=== PATIENT | male | born 1960 | race African-American/Black ===

== ENCOUNTER 2017-04-05 17:53 | Inpatient (IN) | payer OTHER ==
[2017-04-05 19:12] VITALS: BMI 34.9
--- NOTE | 2017-04-05 21:18 | HP ---
CIWA Score - CIWA Score Nausea/Vomitin-Mild Nausea/No Vomiting Muscle Tremors: 4-Moderate,w/Arms Extend Anxiety: 4-Mod. Anxious/Guarded Agitation: 4-Moderately Restless Paroxysmal Sweats: 1-Minimal Palms Moist Orientation: 1-Uncertain about Date Tacttile Disturbances: 0-None Auditory Disturbances: 0-None Visual Disturbances: 0-None Headache: 0-None Present CIWA-Ar Total Score: 15 Admission ROS BHS - HPI Chief Complaint: withdrawal sx Allergies/Adverse Reactions: Allergies Allergy/AdvReac Type Severity Reaction Status Date / Time Penicillins Allergy Severe Hives Verified 04/05/17 20:24 History of Present Illness: 56 years old male with long history of alcohol nicotine dependence, has asthma hypertension irregular heart rate and hyperlipidemia and depression is admitted to detox Exam Limitations: No Limitations - Ebola screening Have you traveled outside of the country in the last 21 days: No Have you had contact with anyone from an Ebola affected area: No Have you been sick,other than usual withdrawal symptoms: No Do you have a fever: No - Review of Systems Constitutional: Chills, Changes in sleep, Weight Stable EENT: reports: No Symptoms Reported Respiratory: reports: SOB with Exertion Cardiac: reports: Irregular Heart Rate GI: reports: Nausea, Poor Fluid Intake, Abdominal cramping : reports: No Symptoms Reported Musculoskeletal: reports: No Symptoms Reported Integumentary: reports: No Symptoms Reported Neuro: reports: Tremors Endocrine: reports: No Symptoms Reported Hematology: reports: No Symptoms Reported Psychiatric: reports: Judgement Intact, Depressed Other Systems: Reviewed and Negative Patient History - Patient Medical History Hx Anemia: No Hx Asthma: Yes Hx Chronic Obstructive Pulmonary Disease (COPD): No Hx Cancer: No Hx Cardiac Disorders: No Hx Congestive Heart Failure: No Hx Hypertension: Yes Hx Hypercholesterolemia: Yes Hx Pacemaker: No HX Cerebrovascular Accident: No Hx Seizures: No Hx Dementia: No Hx Diabetes: No Hx Gastrointestinal Disorders: No Hx Liver Disease: No Hx Genitourinary Disorders: No Hx Sexually Transmitted Disorders: No Hx Renal Disease (ESRD): No Hx Thyroid Disease: No Hx Human Immunodeficiency Virus (HIV): No Hx Hepatitis C: No Hx Depression: Yes Hx Suicide Attempt: No Hx Bipolar Disorder: No Hx Schizophrenia: No - Patient Surgical History Past Surgical History: Yes Hx Neurologic Surgery: No Hx Cataract Extraction: No Hx Cardiac Surgery: No Hx Lung Surgery: No Hx Breast Surgery: No Hx Breast Biopsy: No Hx Abdominal Surgery: No Hx Appendectomy: No Hx Cholecystectomy: No Hx Genitourinary Surgery: No Hx Orthopedic Surgery: Yes (DISLOCATED LEFT SHOULDER 20 YRS AGO) Anesthesia Reaction: No - PPD History Previous Implant?: Yes Documented Results: Negative w/o proof Implanted On Prior R Admission?: No PPD to be Administered?: Yes - Smoking Cessation Smoking history: Current every day smoker Have you smoked in the past 12 months: Yes Aproximately how many cigarettes per day: 4 Cigars Per Day: 0 Hx Chewing Tobacco Use: No Initiated information on smoking cessation: Yes 'Breaking Loose' booklet given: 04/05/17 - Substance & Tx. History Substance Use Type: Alcohol, Cocaine, Heroin Hx Substance Use Treatment: Yes (11/2016 [facility]) - Substances Abused Alcohol Route: Oral Frequency: Daily Amount used: VODKA 3 PINTS Age of first use: 19 Date of Last Use: 04/05/17 Alprazolam (Xanax) Route: Oral Frequency: 1-2 times per week Amount used: 2 MG Age of first use: 47 Date of Last Use: 04/05/17 Family Disease History - Family Disease History Family History: Unremarkable Other Family History: only child Admission Physical Exam S - Vital Signs Vital Signs: Vital Signs - 24 hr 04/05/17 19:10 Temperature 98.1 F Pulse Rate 80 Respiratory 18 Rate Blood Pressure 160/84 - Physical General Appearance: Yes: Appropriately Dressed, Mild Distress, Obese, Tremorous , Irritable, Sweating, Anxious HEENTM: Yes: Hearing grossly Normal, Normal ENT Inspection, Normocephalic, Normal Voice Respiratory: Yes: Chest Non-Tender, Lungs Clear, Normal Breath Sounds, No Respiratory Distress, No Accessory Muscle Use Neck: Yes: Supple, Trachea in good position Breast: Yes: Breasts Symetrical Cardiology: Yes: S1, S2, Irregular Abdominal: Yes: Non Tender, Soft Genitourinary: Yes: Within Normal Limits Back: Yes: Normal Inspection Musculoskeletal: Yes: full range of Motion, Gait Steady Extremities: Yes: Normal Range of Motion, Non-Tender, Tremors Neurological: Yes: Alert, Motor Strength 5/5, Normal Response, Depressed Affect Integumentary: Yes: Warm Lymphatic: Yes: Within Normal Limits - Diagnostic (1) Alcohol dependence with uncomplicated withdrawal Current Visit: Yes Status: Acute (2) Methadone maintenance therapy patient Current Visit: Yes Status: Chronic Comment: 140 mg verification pending (3) Asthma Current Visit: Yes Status: Chronic Qualifiers: Asthma severity: mild intermittent Asthma complication type: with status asthmaticus Qualified Code(s): J45.22 - Mild intermittent asthma with status asthmaticus (4) Hypertension Current Visit: Yes Status: Chronic Qualifiers: Hypertension type: essential hypertension Qualified Code(s): I10 - Essential (primary) hypertension (5) Hyperlipidemia Current Visit: Yes Status: Chronic Qualifiers: Hyperlipidemia type: pure hypercholesterolemia Qualified Code(s): E78.00 - Pure hypercholesterolemia, unspecified; E78.0 - Pure hypercholesterolemia (6) Irregular heart rate Current Visit: Yes Status: Chronic (7) Nicotine dependence Current Visit: Yes Status: Acute Qualifiers: Nicotine product type: cigarettes Substance use status: in withdrawal Qualified Code(s): F17.213 - Nicotine dependence, cigarettes, with withdrawal (8) Depression (emotion) Current Visit: Yes Status: Suspected Qualifiers: Depression Type: dysthymia Qualified Code(s): F34.1 - Dysthymic disorder Cleared for Admission BHS - Detox or Rehab [facility] Level of Care: Medically Managed Detox Regimen/Protocol: Librium [facility] Breath Alcohol Content Breath Alcohol Content: 0 Urine Drug Screen - Results Drug Screen Negative: No Urine Drug Screen Results: LEE ANN-Cocaine, OPI-Opiates, MTD-Methadone
[2017-04-05] MEDS ORDERED: guaiFENesin/D-METHORPHAN HB 10 ML UNIT-DOSE CUPS PO PRN (21:19)
[2017-04-05] MEDS ORDERED: P-EPHED 60MG/TRIPROLIDI 2.5MG TABLET PO PRN (21:19)
[2017-04-05] MEDS ORDERED: MAGNESIUM HYDROX 2400MG/30ML ORAL SUSPENSION 30 ML CUP PO PRN (21:19)
[2017-04-05] MEDS ORDERED: ACETAMINOPHEN 325 MG TABLET (FP) PO PRN (21:19)
[2017-04-05] MEDS ORDERED: LOPERAMIDE HCL 2 MG CAPSULE PO PRN (21:19)
[2017-04-05] MEDS ORDERED: MENTHOL/PHENOL 1 EACH UD MM PRN (21:19)
[2017-04-05] MEDS ORDERED: NICOTINE POLACRILEX 2 MG GUM BC PRN (21:19)
[2017-04-05] MEDS ORDERED: diphenhydrAMINE HCL 50 MG CAPSULE PO PRN (21:19)
[2017-04-05] MEDS ORDERED: MAGNESIUM CITRATE 300 ML BOTTLE PO PRN (21:19)
[2017-04-05] MEDS ORDERED: chlordiazePOXIDE HCL 25 MG CAPSULE PO PRN (21:19)
[2017-04-05] MEDS ORDERED: MAG HYDROX/AL HYDROX/SIMETH 30 ML UNIT-DOSE CUP PO PRN (21:19)
[2017-04-05] MEDS ORDERED: ALBUTEROL SO4 6.7 GM HFA INHALER IH PRN (21:20)
[2017-04-05] MEDS: HYDROCHLOROTHIAZIDE 25 MG TABLET (FP) PO SCH (23:06)
[2017-04-05] MEDS: ATORVASTATIN CA 10 MG TABLET (FP) PO SCH (23:06)
[2017-04-05] MEDS: chlordiazePOXIDE HCL 25 MG CAPSULE PO SCH (23:06)
[2017-04-05] MEDS: THIAMINE HCL 100 MG TABLET (FP) PO SCH (23:10)
[2017-04-06] MEDS: chlordiazePOXIDE HCL 25 MG CAPSULE PO SCH ×4 (05:48→22:03)
--- NOTE | 2017-04-06 09:11 | PN ---
S CIWA - CIWA Score Nausea/Vomitin Muscle Tremors: 4-Moderate,w/Arms Extend Anxiety: 4-Mod. Anxious/Guarded Agitation: 4-Moderately Restless Paroxysmal Sweats: 3 Orientation: 0-Oriented Tacttile Disturbances: 0-None Auditory Disturbances: 0-None Visual Disturbances: 0-None Headache: 0-None Present CIWA-Ar Total Score: 18 BHS Progress Note (SOAP) Subjective: nausea, sweats, interrupted sleep , anxiety, tremors Objective: 04/06/17 09:10 labs pending Vital Signs - 8 hr 04/06/17 04/06/17 03:30 06:39 Temperature 98.5 F Pulse Rate 88 Respiratory 18 18 Rate Blood Pressure 156/92 Assessment: 04/06/17 09:10 withdrawal sx, methadone dose verified 140mg daily , LD04/05/17 Plan: cont detox, encourage fuids, ambulation, methadone dose oredered for now.
[2017-04-06] MEDS ORDERED: METHADONE HCL 10 MG TABLET PO SCH (09:15)
[2017-04-06] MEDS ORDERED: METHADONE HCL 10 MG TABLET ONE (09:33)
[2017-04-06] MEDS ORDERED: METHADONE HCL 40 MG DISPERSABLE TABLET ONE (09:34)
--- NOTE | 2017-04-06 09:39 | CONSULT ---
[facility] Psychiatric Consult - Data Date of interview: 04/06/17 Admission source: [facility] Identifying data: This is 56 years old male with psychiatric hospitalization history intoxicated with: Alcohol and Nicotine, Opioids Substance Abuse History: - Smoking Cessation. Smoking history: Current every day smoker. Have you smoked in the past 12 months: Yes. Aproximately how many cigarettes per day: 4. Cigars Per Day: 0. Hx Chewing Tobacco Use: No. Initiated information on smoking cessation: Yes. 'Breaking Loose' booklet given : 04/05/17. - Substance & Tx. History. Substance Use Type: Alcohol, Cocaine, Heroin. Hx Substance Use Treatment: Yes (11/2016 [facility] - Substances Abused. Alcohol. Route: Oral. Frequency: Daily. Amount used: VODKA 3 PINTS. Age of first use: 19. Date of Last Use: 04/05/17. Alprazolam (Xanax ). Route: Oral. Frequency: 1-2 times per week. Amount used: 2 MG. Age of first use: 47. Date of Last Use: 04/05/17 Medical History: Asthma, Hyper loproteinemia, HTN, MMTP 140mg pewr day Psychiatric History: Patient rep[rots history of depression, reports unclear recent psychiatric admission on 3 months ago at [facility] with depressed mood, denies suicidal history. Reports taking prior to admission: Risperdal 1mg po qhs Physical/Sexual Abuse/Trauma History: Denies Additional Comment: Risperdal 1mg po qhs Mental Status Exam - Mental Status Exam Alert and Oriented to: Person Cognitive Function: Fair Patient Appearance: Unkempt Mood: Sad Affect: Flat Patient Behavior: Sedated Speech Pattern: Appropriate Voice Loudness: Mildly Soft/Quiet Thought Process: Circumstantial Thought Disorder: Being Controlled Hallucinations: Denies Suicidal Ideation: Denies Homicidal Ideation: Denies Insight/Judgement: Fair Sleep: Difficulty falling asleep Appetite: Weight loss Muscle strength/Tone: Normal Gait/Station: Normal Additional Comments: Risperdal 1mg po qhs Psychiatric Findings - Problem List ([place] 1, 2,3) (1) Alcohol dependence with uncomplicated withdrawal Current Visit: Yes Status: Acute (2) Nicotine dependence Current Visit: Yes Status: Acute Qualifiers: Nicotine product type: cigarettes Substance use status: in withdrawal Qualified Code(s): F17.213 - Nicotine dependence, cigarettes, with withdrawal (3) Methadone maintenance therapy patient Current Visit: Yes Status: Chronic Comment: 140 mg verification pending (4) Drug-induced mood disorder Current Visit: Yes Status: Acute - Initial Treatment Plan Initial Treatment Plan: Risperdal 1mg po qhs
[2017-04-06] MEDS: PRENATAL VITAMINS W/ FOLIC ACID TABLET (FP) PO SCH (10:04)
[2017-04-06] MEDS: ASPIRIN 81 MG CHEWABLE TABLETS PO SCH (10:05)
[2017-04-06] MEDS: METHADONE 120 MG, METHADONE 20 MG PO SCH (10:05)
[2017-04-06 10:06] LABS: MCH 32.1 pg (25.7-33.7); MCHC 34.2 g/dl (32.0-35.9); MEAN CELL VOLUME 93.8 fl (80-96); MEAN PLT VOLUME 7.7 fl (7.5-11.1); PLATELET COUNT 213 K/MM3 (134-434); RDW 13.3 % (11.9-15.9); WHITE BLOOD COUNT 6.6 K/mm3 (4.0-10.0)
[2017-04-06] MEDS: HYDROCHLOROTHIAZIDE 25 MG TABLET (FP) PO SCH (10:06)
[2017-04-06] MEDS: NICOTINE 14 MG/24 HOURS TOPICAL PATCH TD SCH (10:08)
[2017-04-06 10:34] LABS: ALBUMIN 3.5 g/dl (3.4-5.0); ALK PHOS 38 U/L (45-117); ANION GAP 7 (8-16); BILIRUBIN,TOTAL 0.3 mg/dL (0.2-1.0); CALCIUM 9.4 mg/dL (8.5-10.1); CO2 31 mmol/L (21-32); GLUCOSE,RANDOM 93 mg/dL (74-106); SGOT/AST 12 U/L (15-37); SGPT/ALT 20 U/L (12-78); TOT PROT 6.8 g/dl (6.4-8.2)
--- NOTE | 2017-04-06 15:01 | EKG ---
Test Reason : Blood Pressure : / mmHG Vent. Rate : 071 BPM Atrial Rate : 071 BPM P-R Int : 208 ms QRS Dur : 082 ms QT Int : 424 ms P-R-T Axes : 061 062 060 degrees QTc Int : 460 ms NORMAL SINUS RHYTHM NORMAL ECG NO PREVIOUS ECGS AVAILABLE Confirmed by NERIS CORTEZ, MARIANN ([id number]) on 04/06/2017 3:01:10 PM Referred By: Gonzalo Salazar Confirmed By:MARIANN CORDON MD
[2017-04-06 17:22] LABS: PH,URINE 5.5 (5.0-8.0); URINE APPEARANCE CLEAR; URINE BILIRUBIN NEGATIVE (NEGATIVE); URINE BLOOD NEGATIVE (NEGATIVE); URINE COLOR YELLOW; URINE GLUCOSE (UA) NEGATIVE (NEGATIVE); URINE KETONE NEGATIVE (NEGATIVE); URINE LEUK ESTERASE NEGATIVE (NEGATIVE); URINE NITRITE NEGATIVE (NEGATIVE); URINE PROTEIN NEGATIVE (NEGATIVE); URINE UROBILINOGEN 0.2 mg/dL (0.2-1.0)
[2017-04-06] MEDS: ATORVASTATIN CA 10 MG TABLET (FP) PO SCH (22:03)
[2017-04-06] MEDS: risperiDONE 1 MG TABLET (FP) PO SCH (22:03)
[2017-04-06] MEDS: THIAMINE HCL 100 MG TABLET (FP) PO SCH (22:03)
[2017-04-07] MEDS ORDERED: METHADONE HCL 40 MG DISPERSABLE TABLET ONE (04:04)
[2017-04-07] MEDS ORDERED: METHADONE HCL 10 MG TABLET ONE (04:04)
[2017-04-07] MEDS: METHADONE 120 MG, METHADONE 20 MG PO SCH (05:42)
[2017-04-07] MEDS: chlordiazePOXIDE HCL 25 MG CAPSULE PO SCH ×3 (05:43→18:52)
[2017-04-07] MEDS: HYDROCHLOROTHIAZIDE 25 MG TABLET (FP) PO SCH (10:04)
[2017-04-07] MEDS: ASPIRIN 81 MG CHEWABLE TABLETS PO SCH (10:04)
[2017-04-07] MEDS: NICOTINE 14 MG/24 HOURS TOPICAL PATCH TD SCH (10:04)
[2017-04-07] MEDS: PRENATAL VITAMINS W/ FOLIC ACID TABLET (FP) PO SCH (10:04)
--- NOTE | 2017-04-07 10:13 | PN ---
[facility] CIWA - CIWA Score Nausea/Vomitin-No Nausea/No Vomiting Muscle Tremors: 3 Anxiety: 4-Mod. Anxious/Guarded Agitation: 3 Paroxysmal Sweats: 3 Orientation: 0-Oriented Tacttile Disturbances: 0-None Auditory Disturbances: 0-None Visual Disturbances: 0-None Headache: 0-None Present CIWA-Ar Total Score: 13 S Progress Note (SOAP) Subjective: Anxiety,tremors,sweating,interrupted sleep,restless. Objective: 04/07/17 10:12 Vital Signs - 8 hr 04/07/17 04/07/17 04/07/17 03:37 06:28 09:26 Temperature 98.8 F 98.6 F Pulse Rate 84 90 Respiratory 18 18 20 Rate Blood Pressure 113/76 119/79 04/07/17 09:43 Temperature 98.6 F Pulse Rate 90 Respiratory 20 Rate Blood Pressure 119/79 Laboratory Last Values WBC 6.6 K/mm3 (4.0-10.0) 04/06/17 07:00 RBC 4.08 M/mm3 (4.00-5.60) 04/06/17 07:00 Hgb 13.1 GM/dL (11.7-16.9) 04/06/17 07:00 Hct 38.2 % (35.4-49) 04/06/17 07:00 MCV 93.8 fl (80-96) 04/06/17 07:00 MCH 32.1 pg (25.7-33.7) 04/06/17 07:00 MCHC 34.2 g/dl (32.0-35.9) 04/06/17 07:00 RDW 13.3 % (11.9-15.9) 04/06/17 07:00 Plt Count 213 K/MM3 (134-434) 04/06/17 07:00 MPV 7.7 fl (7.5-11.1) 04/06/17 07:00 Sodium 140 mmol/L (136-145) 04/06/17 07:00 Potassium 3.7 mmol/L (3.5-5.1) 04/06/17 07:00 Chloride 102 mmol/L (98-107) 04/06/17 07:00 Carbon Dioxide 31 mmol/L (21-32) 04/06/17 07:00 Anion Gap 7 (8-16) L 04/06/17 07:00 BUN 13 mg/dL (7-18) 04/06/17 07:00 Creatinine 1.0 mg/dL (0.7-1.3) 04/06/17 07:00 Creat Clearance w eGFR > 60 (>60) 04/06/17 07:00 Random Glucose 93 mg/dL (74-106) 04/06/17 07:00 Calcium 9.4 mg/dL (8.5-10.1) 04/06/17 07:00 Total Bilirubin 0.3 mg/dL (0.2-1.0) 04/06/17 07:00 AST 12 U/L (15-37) L 04/06/17 07:00 ALT 20 U/L (12-78) 04/06/17 07:00 Alkaline Phosphatase 38 U/L (45-117) L 04/06/17 07:00 Total Protein 6.8 g/dl (6.4-8.2) 04/06/17 07:00 Albumin 3.5 g/dl (3.4-5.0) 04/06/17 07:00 Urine Color Yellow 04/05/17 15:00 Urine Appearance Clear 04/05/17 15:00 Urine pH 5.5 (5.0-8.0) 04/05/17 15:00 Ur Specific [place] >= 1.030 (1.005-1.025) H 04/05/17 15:00 Urine Protein Negative (NEGATIVE) 04/05/17 15:00 Urine Glucose (UA) Negative (NEGATIVE) 04/05/17 15:00 Urine Ketones Negative (NEGATIVE) 04/05/17 15:00 Urine Blood Negative (NEGATIVE) 04/05/17 15:00 Urine Nitrite Negative (NEGATIVE) 04/05/17 15:00 Urine Bilirubin Negative (NEGATIVE) 04/05/17 15:00 Urine Urobilinogen 0.2 mg/dL (0.2-1.0) 04/05/17 15:00 Ur Leukocyte Esterase Negative (NEGATIVE) 04/05/17 15:00 RPR Titer Nonreactive (NONREACTIVE) 04/06/17 07:00 labs noted Assessment: 04/07/17 10:12 Withdrawal sx. Plan: Continue detox
[2017-04-07] MEDS: THIAMINE HCL 100 MG TABLET (FP) PO SCH (22:18)
[2017-04-07] MEDS: ATORVASTATIN CA 10 MG TABLET (FP) PO SCH (22:19)
[2017-04-07] MEDS: chlordiazePOXIDE 5 MG CAPSULE PO SCH (22:19)
[2017-04-07] MEDS: risperiDONE 1 MG TABLET (FP) PO SCH (22:19)
[2017-04-08] MEDS ORDERED: METHADONE HCL 10 MG TABLET ONE (04:10)
[2017-04-08] MEDS ORDERED: METHADONE HCL 40 MG DISPERSABLE TABLET ONE (04:11)
[2017-04-08] MEDS: METHADONE 120 MG, METHADONE 20 MG PO SCH (05:48)
[2017-04-08] MEDS: chlordiazePOXIDE 5 MG CAPSULE PO SCH ×3 (05:48→17:39)
[2017-04-08] MEDS: PRENATAL VITAMINS W/ FOLIC ACID TABLET (FP) PO SCH (10:07)
[2017-04-08] MEDS: HYDROCHLOROTHIAZIDE 25 MG TABLET (FP) PO SCH (10:07)
[2017-04-08] MEDS: ASPIRIN 81 MG CHEWABLE TABLETS PO SCH (10:07)
[2017-04-08] MEDS: NICOTINE 14 MG/24 HOURS TOPICAL PATCH TD SCH (10:08)
--- NOTE | 2017-04-08 19:54 | PN ---
BHS Progress Note (SOAP) Subjective: Vomiting, Body Aches, Interrupted Sleep, Sweating. Objective: PT. A & O X 2 (DISORIENTED ABOUT LOCATION). NO ACUTE DISTRESS. 04/08/17 19:52 Vital Signs Temperature 97.0 F L 04/08/17 18:52 Pulse Rate 89 04/08/17 18:52 Respiratory Rate 18 04/08/17 18:52 Blood Pressure 109/67 04/08/17 18:52 O2 Sat by Pulse Oximetry (%) Laboratory Tests 04/05/17 04/06/17 04/06/17 15:00 07:00 07:00 WBC 6.6 RBC 4.08 Hgb 13.1 Hct 38.2 MCV 93.8 MCH 32.1 MCHC 34.2 RDW 13.3 Plt Count 213 MPV 7.7 Sodium 140 Potassium 3.7 Chloride 102 Carbon Dioxide 31 Anion Gap 7 L BUN 13 Creatinine 1.0 Creat Clearance w eGFR > 60 Random Glucose 93 Calcium 9.4 Total Bilirubin 0.3 AST 12 L ALT 20 Alkaline Phosphatase 38 L Total Protein 6.8 Albumin 3.5 Urine Color Yellow Urine Appearance Clear Urine pH 5.5 Ur Specific [place] >= 1.030 H Urine Protein Negative Urine Glucose (UA) Negative Urine Ketones Negative Urine Blood Negative Urine Nitrite Negative Urine Bilirubin Negative Urine Urobilinogen 0.2 Ur Leukocyte Esterase Negative RPR Titer 04/06/17 07:00 WBC RBC Hgb Hct MCV MCH MCHC RDW Plt Count MPV Sodium Potassium Chloride Carbon Dioxide Anion Gap BUN Creatinine Creat Clearance w eGFR Random Glucose Calcium Total Bilirubin AST ALT Alkaline Phosphatase Total Protein Albumin Urine Color Urine Appearance Urine pH Ur Specific [place] Urine Protein Urine Glucose (UA) Urine Ketones Urine Blood Urine Nitrite Urine Bilirubin Urine Urobilinogen Ur Leukocyte Esterase RPR Titer Nonreactive LABS NOTED. Assessment: 04/08/17 19:53 WITHDRAWAL SYMPTOMS. Plan: CONTINUE DETOX.
[2017-04-08] MEDS: THIAMINE HCL 100 MG TABLET (FP) PO SCH (22:08)
[2017-04-08] MEDS: chlordiazePOXIDE HCL 10 MG CAPSULE PO SCH (22:08)
[2017-04-08] MEDS: ATORVASTATIN CA 10 MG TABLET (FP) PO SCH (22:08)
[2017-04-08] MEDS: risperiDONE 1 MG TABLET (FP) PO SCH (22:08)
[2017-04-09] MEDS ORDERED: METHADONE HCL 10 MG TABLET ONE (03:47)
[2017-04-09] MEDS ORDERED: METHADONE HCL 40 MG DISPERSABLE TABLET ONE (03:48)
[2017-04-09] MEDS: chlordiazePOXIDE HCL 10 MG CAPSULE PO SCH ×3 (05:46→17:30)
[2017-04-09] MEDS: METHADONE 120 MG, METHADONE 20 MG PO SCH (05:46)
[2017-04-09] MEDS: NICOTINE 14 MG/24 HOURS TOPICAL PATCH TD SCH (10:10)
[2017-04-09] MEDS: HYDROCHLOROTHIAZIDE 25 MG TABLET (FP) PO SCH (10:10)
[2017-04-09] MEDS: ASPIRIN 81 MG CHEWABLE TABLETS PO SCH (10:10)
[2017-04-09] MEDS: PRENATAL VITAMINS W/ FOLIC ACID TABLET (FP) PO SCH (10:10)
[2017-04-09 10:13] VITALS: BP 125/83; PULSE 96; TEMP 98.3
--- NOTE | 2017-04-09 15:33 | DS ---
[facility] Detox Discharge Summary Admission Date: 04/05/17 Discharge Date: 04/09/17 - History Present History: Alcohol Dependence, MMTP Pertinent Past History: Asthma HLD HTN - Physical Exam Results Vital Signs: Vital Signs Temperature 98.3 F 04/09/17 10:12 Pulse Rate 96 H 04/09/17 10:12 Respiratory Rate 18 04/09/17 10:12 Blood Pressure 125/83 04/09/17 10:12 O2 Sat by Pulse Oximetry (%) Pertinent Admission Physical Exam Findings: Withdrawal symptoms Laboratory Tests 04/05/17 04/06/17 04/06/17 15:00 07:00 07:00 WBC 6.6 RBC 4.08 Hgb 13.1 Hct 38.2 MCV 93.8 MCH 32.1 MCHC 34.2 RDW 13.3 Plt Count 213 MPV 7.7 Sodium 140 Potassium 3.7 Chloride 102 Carbon Dioxide 31 Anion Gap 7 L BUN 13 Creatinine 1.0 Creat Clearance w eGFR > 60 Random Glucose 93 Calcium 9.4 Total Bilirubin 0.3 AST 12 L ALT 20 Alkaline Phosphatase 38 L Total Protein 6.8 Albumin 3.5 Urine Color Yellow Urine Appearance Clear Urine pH 5.5 Ur Specific [place] >= 1.030 H Urine Protein Negative Urine Glucose (UA) Negative Urine Ketones Negative Urine Blood Negative Urine Nitrite Negative Urine Bilirubin Negative Urine Urobilinogen 0.2 Ur Leukocyte Esterase Negative RPR Titer 04/06/17 07:00 WBC RBC Hgb Hct MCV MCH MCHC RDW Plt Count MPV Sodium Potassium Chloride Carbon Dioxide Anion Gap BUN Creatinine Creat Clearance w eGFR Random Glucose Calcium Total Bilirubin AST ALT Alkaline Phosphatase Total Protein Albumin Urine Color Urine Appearance Urine pH Ur Specific [place] Urine Protein Urine Glucose (UA) Urine Ketones Urine Blood Urine Nitrite Urine Bilirubin Urine Urobilinogen Ur Leukocyte Esterase RPR Titer Nonreactive Labs noted - Treatment Hospital Course: Detox Protocol Followed, Detoxed Safely, Responded well, Discharged Condition Good, Rehab Referral Accepted - Medication Discharge Medications: Ambulatory Orders Albuterol Sulfate Inhaler - [Ventolin Hfa Inhaler -] 2 inh PO Q4H 04/05/17 Aspirin [ASA -] 81 mg PO DAILY 04/05/17 Hydrochlorothiazide [Hctz -] 25 mg PO DAILY 04/05/17 Risperidone [Risperdal] 1 mg PO HS 04/05/17 Simvastatin [Zocor] 10 mg PO HS 04/05/17 Risperidone [Risperdal] 1 mg PO HS #30 tablet 04/06/17 - Diagnosis (1) Alcohol dependence with uncomplicated withdrawal Current Visit: Yes Status: Acute (2) Nicotine dependence Current Visit: Yes Status: Chronic Qualifiers: Nicotine product type: cigarettes Substance use status: in withdrawal Qualified Code(s): F17.213 - Nicotine dependence, cigarettes, with withdrawal (3) Asthma Current Visit: Yes Status: Chronic Qualifiers: Asthma severity: mild intermittent Asthma complication type: with status asthmaticus Qualified Code(s): J45.22 - Mild intermittent asthma with status asthmaticus (4) Hyperlipidemia Current Visit: Yes Status: Chronic Qualifiers: Hyperlipidemia type: pure hypercholesterolemia Qualified Code(s): E78.00 - Pure hypercholesterolemia, unspecified; E78.0 - Pure hypercholesterolemia (5) Hypertension Current Visit: Yes Status: Chronic Qualifiers: Hypertension type: essential hypertension Qualified Code(s): I10 - Essential (primary) hypertension (6) Methadone maintenance therapy patient Current Visit: Yes Status: Chronic (7) Depression (emotion) Current Visit: Yes Status: Chronic Qualifiers: Depression Type: dysthymia Qualified Code(s): F34.1 - Dysthymic disorder - AMA Did Patient Leave Against Medical Advice: No
== END 2017-04-09 17:57 | disposition other institution (70) | DRG 773 ==
LOC: YASAS 17:53 → Y3N 22:01
PROVIDERS: ADMIT Internal Medicine; ATTEND Internal Medicine
PROC: HZ2ZZZZ Detoxification Services for Substance Abuse Treatment (ICD-10-PCS; principal; 2017-04-05)
DX: F10.230 Alcohol dependence with withdrawal, uncomplicated (principal); F11.20 Opioid dependence, uncomplicated; F17.213 Nicotine dependence, cigarettes, with withdrawal; F34.1 Dysthymic disorder; F19.24 Other psychoactive substance dependence with psychoactive substance-induced mood disorder; J45.22 Mild intermittent asthma with status asthmaticus; E78.5 Hyperlipidemia, unspecified; E66.9 Obesity, unspecified; I10 Essential (primary) hypertension; I49.9 Cardiac arrhythmia, unspecified; Z68.34 Body mass index [BMI] 34.0-34.9, adult; Z88.0 Allergy status to penicillin
CPT/HCPCS: 36415; 80053; 81003; 85027; 86593; 93005; 93010; J2794

== ENCOUNTER 2017-04-09 18:04 | Inpatient (IN) | payer OTHER ==
[2017-04-09] MEDS ORDERED: MAGNESIUM HYDROX 2400MG/30ML ORAL SUSPENSION 30 ML CUP PO PRN (20:31)
[2017-04-09] MEDS ORDERED: IBUPROFEN 400 MG TABLET (FP) PO PRN (20:31)
[2017-04-09] MEDS ORDERED: MAGNESIUM CITRATE 300 ML BOTTLE PO PRN (20:31)
[2017-04-09] MEDS ORDERED: guaiFENesin/D-METHORPHAN HB 10 ML UNIT-DOSE CUPS PO PRN (20:31)
[2017-04-09] MEDS ORDERED: MAG HYDROX/AL HYDROX/SIMETH 30 ML UNIT-DOSE CUP PO PRN (20:31)
[2017-04-09] MEDS ORDERED: MENTHOL/PHENOL 1 EACH UD MM PRN (20:31)
[2017-04-09] MEDS ORDERED: P-EPHED 60MG/TRIPROLIDI 2.5MG TABLET PO PRN (20:31)
[2017-04-09] MEDS ORDERED: LOPERAMIDE HCL 2 MG CAPSULE PO PRN (20:31)
[2017-04-09] MEDS ORDERED: ACETAMINOPHEN 325 MG TABLET (FP) PO PRN (20:31)
--- NOTE | 2017-04-09 20:36 | HP ---
[facility] Rehab Assess/Revision - Admission History Admitted to Rehab from: [facility] Date of Admission to Rehab: 04/09/2017 - Findings Detox History & Physical reviewed: Yes Concur with findings: Yes Comments/Additional Findings: PLEASE SEE ORDRS FOR DETAILS. OTHER ORDERS: PER THE UNIT PROTOCOL AND UNIT ATTENDINGS.
[2017-04-09] MEDS: ATORVASTATIN CA 10 MG TABLET (FP) PO SCH (21:15)
[2017-04-09] MEDS: hydrOXYzine PAMOATE 25 MG CAPSULE (FP) PO PRN (21:15)
[2017-04-09] MEDS: THIAMINE HCL 100 MG TABLET (FP) PO SCH (21:15)
[2017-04-09] MEDS: ALBUTEROL SO4 6.7 GM HFA INHALER IH SCH (21:16)
[2017-04-09 22:55] VITALS: BMI 34.9
[2017-04-10] MEDS: ALBUTEROL SO4 6.7 GM HFA INHALER IH SCH ×6 (01:51→21:19)
[2017-04-10] MEDS ORDERED: METHADONE HCL 10 MG TABLET ONE (05:42)
[2017-04-10] MEDS ORDERED: METHADONE HCL 40 MG DISPERSABLE TABLET ONE (05:43)
[2017-04-10] MEDS ORDERED: METHADONE HCL 10 MG TABLET PO SCH (06:00)
[2017-04-10] MEDS: METHADONE 120 MG, METHADONE 20 MG PO SCH (06:44)
[2017-04-10] MEDS: ASPIRIN 81 MG CHEWABLE TABLETS PO SCH (10:00)
[2017-04-10] MEDS: HYDROCHLOROTHIAZIDE 25 MG TABLET (FP) PO SCH (10:00)
[2017-04-10] MEDS: PRENATAL VITAMINS W/ FOLIC ACID TABLET (FP) PO SCH (10:00)
--- NOTE | 2017-04-10 14:04 | HP ---
Psychiatrist Admission - Data Date of interview: 04/10/17 Admission source: [address] [place] [address] Identifying data: This is the first admission to [address] [place] [address] for this 56 yo single AA male resides alone,supported by PA. Medical History: HNT,BA,Hyperlipidemia. Psychiatric History: Reports first contact with psychiatrist was about 2 years ago.He was admitted to [facility] due to severe depression,auditory hallucinations.Patient was dx with Bipolar disorder,placed on psychotropic medications.Patient reports 3 more psychiatric admissions,most recent hospitalization in December 2016 due to severe depression,drinking,using drugs. Sees psychiatrist at [facility] day rehab clinic in [facility].medications:Risperdal 1 mg po hs and Celexa 20 mg po daily. Physical/Sexual Abuse/Trauma History: denies Vital Signs: Vital Signs - 24 hr 04/09/17 04/10/17 04/10/17 22:40 00:30 03:30 Temperature 97.7 F Pulse Rate 91 H Respiratory 18 20 18 Rate Blood Pressure 136/81 04/10/17 06:00 Temperature 97.7 F Pulse Rate 84 Respiratory 18 Rate Blood Pressure 147/72 Allergies/Adverse Reactions: Allergies Allergy/AdvReac Type Severity Reaction Status Date / Time Penicillins Allergy Severe Hives Verified 04/05/17 20:24 Date of last physical exam: 04/05/17 Concur with the findings of this exam: Yes - Substance Abuse/Tx History Hx Alcohol Use: Yes (drinking since 19 yo,6 packs daily) Hx Substance Use: Yes (coacine since 34 yo,heroin since 41 yo (sniffing),on MMTP 140 mg) Substance Use Type: Alcohol, Cocaine, Heroin Hx Substance Use Treatment: Yes (this is his first inpatient rehab,longest abstinence 2 years) - Admission Criteria Previous failed treatment: Yes Poor recovery environment: Yes Comorbidities: Yes Lacks judgement: Yes
[2017-04-10] MEDS: CITALOPRAM HYDROBROMIDE 20 MG TABLET (FP) PO SCH (15:58)
[2017-04-10] MEDS: risperiDONE 1 MG TABLET (FP) PO SCH (21:18)
[2017-04-10] MEDS: THIAMINE HCL 100 MG TABLET (FP) PO SCH (21:18)
[2017-04-10] MEDS: ATORVASTATIN CA 10 MG TABLET (FP) PO SCH (21:18)
[2017-04-11] MEDS: ALBUTEROL SO4 6.7 GM HFA INHALER IH SCH ×3 (00:45→09:29)
[2017-04-11] MEDS ORDERED: METHADONE HCL 10 MG TABLET ONE (04:14)
[2017-04-11] MEDS ORDERED: METHADONE HCL 40 MG DISPERSABLE TABLET ONE (04:14)
[2017-04-11] MEDS: METHADONE 120 MG, METHADONE 20 MG PO SCH (06:14)
[2017-04-11] MEDS: PRENATAL VITAMINS W/ FOLIC ACID TABLET (FP) PO SCH (09:28)
[2017-04-11] MEDS: CITALOPRAM HYDROBROMIDE 20 MG TABLET (FP) PO SCH (09:28)
[2017-04-11] MEDS: HYDROCHLOROTHIAZIDE 25 MG TABLET (FP) PO SCH (09:28)
[2017-04-11] MEDS: ASPIRIN 81 MG CHEWABLE TABLETS PO SCH (09:28)
[2017-04-11] MEDS ORDERED: ALBUTEROL SO4 6.7 GM HFA INHALER IH PRN (12:29)
[2017-04-11] MEDS: ATORVASTATIN CA 10 MG TABLET (FP) PO SCH (21:57)
[2017-04-11] MEDS: risperiDONE 1 MG TABLET (FP) PO SCH (21:57)
[2017-04-11] MEDS: THIAMINE HCL 100 MG TABLET (FP) PO SCH (21:57)
[2017-04-12] MEDS ORDERED: METHADONE HCL 40 MG DISPERSABLE TABLET ONE (03:46)
[2017-04-12] MEDS ORDERED: METHADONE HCL 10 MG TABLET ONE (03:46)
[2017-04-12] MEDS: METHADONE 120 MG, METHADONE 20 MG PO SCH (06:00)
[2017-04-12] MEDS: ASPIRIN 81 MG CHEWABLE TABLETS PO SCH (09:49)
[2017-04-12] MEDS: CITALOPRAM HYDROBROMIDE 20 MG TABLET (FP) PO SCH (09:49)
[2017-04-12] MEDS: PRENATAL VITAMINS W/ FOLIC ACID TABLET (FP) PO SCH (09:49)
[2017-04-12] MEDS: HYDROCHLOROTHIAZIDE 25 MG TABLET (FP) PO SCH (09:49)
[2017-04-12] MEDS: risperiDONE 1 MG TABLET (FP) PO SCH (21:25)
[2017-04-12] MEDS: ATORVASTATIN CA 10 MG TABLET (FP) PO SCH (21:25)
[2017-04-12] MEDS: hydrOXYzine PAMOATE 25 MG CAPSULE (FP) PO PRN (21:25)
[2017-04-12] MEDS: THIAMINE HCL 100 MG TABLET (FP) PO SCH (21:25)
[2017-04-13] MEDS ORDERED: METHADONE HCL 10 MG TABLET ONE (03:10)
[2017-04-13] MEDS ORDERED: METHADONE HCL 40 MG DISPERSABLE TABLET ONE (03:11)
[2017-04-13] MEDS: METHADONE 120 MG, METHADONE 20 MG PO SCH (06:06)
[2017-04-13] MEDS: ASPIRIN 81 MG CHEWABLE TABLETS PO SCH (09:48)
[2017-04-13] MEDS: PRENATAL VITAMINS W/ FOLIC ACID TABLET (FP) PO SCH (09:48)
[2017-04-13] MEDS: CITALOPRAM HYDROBROMIDE 20 MG TABLET (FP) PO SCH (09:48)
[2017-04-13] MEDS: HYDROCHLOROTHIAZIDE 25 MG TABLET (FP) PO SCH (09:48)
[2017-04-13] MEDS: hydrOXYzine PAMOATE 25 MG CAPSULE (FP) PO PRN (21:18)
[2017-04-13] MEDS: risperiDONE 1 MG TABLET (FP) PO SCH (21:18)
[2017-04-13] MEDS: ATORVASTATIN CA 10 MG TABLET (FP) PO SCH (21:18)
[2017-04-13] MEDS: THIAMINE HCL 100 MG TABLET (FP) PO SCH (21:18)
[2017-04-14] MEDS ORDERED: METHADONE HCL 10 MG TABLET ONE (04:02)
[2017-04-14] MEDS ORDERED: METHADONE HCL 40 MG DISPERSABLE TABLET ONE (04:03)
[2017-04-14] MEDS: METHADONE 120 MG, METHADONE 20 MG PO SCH (06:02)
[2017-04-14] MEDS: HYDROCHLOROTHIAZIDE 25 MG TABLET (FP) PO SCH (09:39)
[2017-04-14] MEDS: CITALOPRAM HYDROBROMIDE 20 MG TABLET (FP) PO SCH (09:39)
[2017-04-14] MEDS: PRENATAL VITAMINS W/ FOLIC ACID TABLET (FP) PO SCH (09:39)
[2017-04-14] MEDS: ASPIRIN 81 MG CHEWABLE TABLETS PO SCH (09:39)
[2017-04-14] MEDS: risperiDONE 1 MG TABLET (FP) PO SCH (21:54)
[2017-04-14] MEDS: hydrOXYzine PAMOATE 25 MG CAPSULE (FP) PO PRN (21:54)
[2017-04-14] MEDS: THIAMINE HCL 100 MG TABLET (FP) PO SCH (21:54)
[2017-04-14] MEDS: ATORVASTATIN CA 10 MG TABLET (FP) PO SCH (21:54)
[2017-04-15] MEDS ORDERED: METHADONE HCL 10 MG TABLET ONE (05:25)
[2017-04-15] MEDS ORDERED: METHADONE HCL 40 MG DISPERSABLE TABLET ONE (05:26)
[2017-04-15] MEDS: METHADONE 120 MG, METHADONE 20 MG PO SCH (06:25)
[2017-04-15] MEDS: PRENATAL VITAMINS W/ FOLIC ACID TABLET (FP) PO SCH (09:27)
[2017-04-15] MEDS: ASPIRIN 81 MG CHEWABLE TABLETS PO SCH (09:27)
[2017-04-15] MEDS: HYDROCHLOROTHIAZIDE 25 MG TABLET (FP) PO SCH (09:27)
[2017-04-15] MEDS: CITALOPRAM HYDROBROMIDE 20 MG TABLET (FP) PO SCH (09:27)
[2017-04-15] MEDS: ATORVASTATIN CA 10 MG TABLET (FP) PO SCH (21:18)
[2017-04-15] MEDS: THIAMINE HCL 100 MG TABLET (FP) PO SCH (21:18)
[2017-04-15] MEDS: risperiDONE 1 MG TABLET (FP) PO SCH (21:18)
[2017-04-15] MEDS: diphenhydrAMINE HCL 50 MG CAPSULE PO PRN (21:20)
[2017-04-16] MEDS ORDERED: METHADONE HCL 10 MG TABLET ONE (02:11)
[2017-04-16] MEDS ORDERED: METHADONE HCL 40 MG DISPERSABLE TABLET ONE (02:11)
[2017-04-16] MEDS: METHADONE 120 MG, METHADONE 20 MG PO SCH (06:26)
[2017-04-16] MEDS: HYDROCHLOROTHIAZIDE 25 MG TABLET (FP) PO SCH (09:32)
[2017-04-16] MEDS: CITALOPRAM HYDROBROMIDE 20 MG TABLET (FP) PO SCH (09:32)
[2017-04-16] MEDS: ASPIRIN 81 MG CHEWABLE TABLETS PO SCH (09:32)
[2017-04-16] MEDS: PRENATAL VITAMINS W/ FOLIC ACID TABLET (FP) PO SCH (09:33)
[2017-04-16] MEDS: THIAMINE HCL 100 MG TABLET (FP) PO SCH (21:08)
[2017-04-16] MEDS: ATORVASTATIN CA 10 MG TABLET (FP) PO SCH (21:08)
[2017-04-16] MEDS: risperiDONE 1 MG TABLET (FP) PO SCH (21:08)
[2017-04-16] MEDS: diphenhydrAMINE HCL 50 MG CAPSULE PO PRN (21:08)
[2017-04-17] MEDS ORDERED: METHADONE HCL 40 MG DISPERSABLE TABLET ONE (05:56)
[2017-04-17] MEDS ORDERED: METHADONE HCL 10 MG TABLET ONE (05:56)
[2017-04-17] MEDS ORDERED: METHADONE HCL 10 MG TABLET PO SCH (06:00)
[2017-04-17] MEDS: METHADONE 120 MG, METHADONE 20 MG PO SCH (06:24)
[2017-04-17] MEDS: PRENATAL VITAMINS W/ FOLIC ACID TABLET (FP) PO SCH (09:55)
[2017-04-17] MEDS: ASPIRIN 81 MG CHEWABLE TABLETS PO SCH (09:55)
[2017-04-17] MEDS: HYDROCHLOROTHIAZIDE 25 MG TABLET (FP) PO SCH (09:55)
[2017-04-17] MEDS: CITALOPRAM HYDROBROMIDE 20 MG TABLET (FP) PO SCH (09:55)
[2017-04-17] MEDS: ATORVASTATIN CA 10 MG TABLET (FP) PO SCH (21:11)
[2017-04-17] MEDS: risperiDONE 1 MG TABLET (FP) PO SCH (21:11)
[2017-04-17] MEDS: diphenhydrAMINE HCL 50 MG CAPSULE PO PRN (21:11)
[2017-04-17] MEDS: THIAMINE HCL 100 MG TABLET (FP) PO SCH (21:11)
[2017-04-18] MEDS ORDERED: METHADONE HCL 40 MG DISPERSABLE TABLET ONE (04:08)
[2017-04-18] MEDS ORDERED: METHADONE HCL 10 MG TABLET ONE (04:08)
[2017-04-18] MEDS: METHADONE 120 MG, METHADONE 20 MG PO SCH (06:02)
[2017-04-18] MEDS: PRENATAL VITAMINS W/ FOLIC ACID TABLET (FP) PO SCH (10:26)
[2017-04-18] MEDS: ASPIRIN 81 MG CHEWABLE TABLETS PO SCH (10:26)
[2017-04-18] MEDS: CITALOPRAM HYDROBROMIDE 20 MG TABLET (FP) PO SCH (10:26)
[2017-04-18] MEDS: HYDROCHLOROTHIAZIDE 25 MG TABLET (FP) PO SCH (10:26)
[2017-04-18] MEDS: THIAMINE HCL 100 MG TABLET (FP) PO SCH (22:02)
[2017-04-18] MEDS: risperiDONE 1 MG TABLET (FP) PO SCH (22:02)
[2017-04-18] MEDS: diphenhydrAMINE HCL 50 MG CAPSULE PO PRN (22:02)
[2017-04-18] MEDS: ATORVASTATIN CA 10 MG TABLET (FP) PO SCH (22:02)
[2017-04-19] MEDS ORDERED: METHADONE HCL 10 MG TABLET ONE (03:58)
[2017-04-19] MEDS ORDERED: METHADONE HCL 40 MG DISPERSABLE TABLET ONE (03:58)
[2017-04-19] MEDS: METHADONE 120 MG, METHADONE 20 MG PO SCH (06:06)
[2017-04-19] MEDS: CITALOPRAM HYDROBROMIDE 20 MG TABLET (FP) PO SCH (09:57)
[2017-04-19] MEDS: HYDROCHLOROTHIAZIDE 25 MG TABLET (FP) PO SCH (09:57)
[2017-04-19] MEDS: ASPIRIN 81 MG CHEWABLE TABLETS PO SCH (09:57)
[2017-04-19] MEDS: PRENATAL VITAMINS W/ FOLIC ACID TABLET (FP) PO SCH (09:57)
[2017-04-19] MEDS: THIAMINE HCL 100 MG TABLET (FP) PO SCH (21:24)
[2017-04-19] MEDS: risperiDONE 1 MG TABLET (FP) PO SCH (21:24)
[2017-04-19] MEDS: hydrOXYzine PAMOATE 25 MG CAPSULE (FP) PO PRN (21:24)
[2017-04-19] MEDS: ATORVASTATIN CA 10 MG TABLET (FP) PO SCH (21:24)
[2017-04-20] MEDS ORDERED: METHADONE HCL 10 MG TABLET ONE (03:16)
[2017-04-20] MEDS ORDERED: METHADONE HCL 40 MG DISPERSABLE TABLET ONE (03:16)
[2017-04-20] MEDS: METHADONE 120 MG, METHADONE 20 MG PO SCH (06:28)
[2017-04-20] MEDS: ASPIRIN 81 MG CHEWABLE TABLETS PO SCH (10:02)
[2017-04-20] MEDS: PRENATAL VITAMINS W/ FOLIC ACID TABLET (FP) PO SCH (10:02)
[2017-04-20] MEDS: CITALOPRAM HYDROBROMIDE 20 MG TABLET (FP) PO SCH (10:02)
[2017-04-20] MEDS: HYDROCHLOROTHIAZIDE 25 MG TABLET (FP) PO SCH (10:02)
[2017-04-20] MEDS: risperiDONE 1 MG TABLET (FP) PO SCH (21:45)
[2017-04-20] MEDS: THIAMINE HCL 100 MG TABLET (FP) PO SCH (21:45)
[2017-04-20] MEDS: ATORVASTATIN CA 10 MG TABLET (FP) PO SCH (21:45)
[2017-04-21] MEDS ORDERED: METHADONE HCL 40 MG DISPERSABLE TABLET ONE (04:29)
[2017-04-21] MEDS ORDERED: METHADONE HCL 10 MG TABLET ONE (04:29)
[2017-04-21] MEDS: METHADONE 120 MG, METHADONE 20 MG PO SCH (06:01)
[2017-04-21] MEDS: ASPIRIN 81 MG CHEWABLE TABLETS PO SCH (09:53)
[2017-04-21] MEDS: PRENATAL VITAMINS W/ FOLIC ACID TABLET (FP) PO SCH (09:53)
[2017-04-21] MEDS: HYDROCHLOROTHIAZIDE 25 MG TABLET (FP) PO SCH (09:53)
[2017-04-21] MEDS: CITALOPRAM HYDROBROMIDE 20 MG TABLET (FP) PO SCH (09:53)
[2017-04-21] MEDS: ATORVASTATIN CA 10 MG TABLET (FP) PO SCH (21:23)
[2017-04-21] MEDS: THIAMINE HCL 100 MG TABLET (FP) PO SCH (21:23)
[2017-04-21] MEDS: risperiDONE 1 MG TABLET (FP) PO SCH (21:23)
[2017-04-22] MEDS ORDERED: METHADONE HCL 40 MG DISPERSABLE TABLET ONE (04:10)
[2017-04-22] MEDS ORDERED: METHADONE HCL 10 MG TABLET ONE (04:10)
[2017-04-22] MEDS: METHADONE 120 MG, METHADONE 20 MG PO SCH (06:13)
[2017-04-22] MEDS: PRENATAL VITAMINS W/ FOLIC ACID TABLET (FP) PO SCH (10:12)
[2017-04-22] MEDS: CITALOPRAM HYDROBROMIDE 20 MG TABLET (FP) PO SCH (10:12)
[2017-04-22] MEDS: HYDROCHLOROTHIAZIDE 25 MG TABLET (FP) PO SCH (10:12)
[2017-04-22] MEDS: ASPIRIN 81 MG CHEWABLE TABLETS PO SCH (10:12)
[2017-04-22] MEDS: hydrOXYzine PAMOATE 25 MG CAPSULE (FP) PO PRN (21:23)
[2017-04-22] MEDS: THIAMINE HCL 100 MG TABLET (FP) PO SCH (21:23)
[2017-04-22] MEDS: ATORVASTATIN CA 10 MG TABLET (FP) PO SCH (21:23)
[2017-04-22] MEDS: risperiDONE 1 MG TABLET (FP) PO SCH (21:23)
[2017-04-23] MEDS ORDERED: METHADONE HCL 10 MG TABLET ONE (05:45)
[2017-04-23] MEDS ORDERED: METHADONE HCL 40 MG DISPERSABLE TABLET ONE (05:45)
[2017-04-23] MEDS: METHADONE 120 MG, METHADONE 20 MG PO SCH (06:28)
[2017-04-23] MEDS: PRENATAL VITAMINS W/ FOLIC ACID TABLET (FP) PO SCH (09:41)
[2017-04-23] MEDS: CITALOPRAM HYDROBROMIDE 20 MG TABLET (FP) PO SCH (09:41)
[2017-04-23] MEDS: ASPIRIN 81 MG CHEWABLE TABLETS PO SCH (09:41)
[2017-04-23] MEDS: HYDROCHLOROTHIAZIDE 25 MG TABLET (FP) PO SCH (09:41)
[2017-04-23] MEDS: THIAMINE HCL 100 MG TABLET (FP) PO SCH (21:11)
[2017-04-23] MEDS: hydrOXYzine PAMOATE 25 MG CAPSULE (FP) PO PRN (21:11)
[2017-04-23] MEDS: ATORVASTATIN CA 10 MG TABLET (FP) PO SCH (21:11)
[2017-04-23] MEDS: risperiDONE 1 MG TABLET (FP) PO SCH (21:11)
[2017-04-24] MEDS ORDERED: METHADONE HCL 10 MG TABLET ONE (03:45)
[2017-04-24] MEDS ORDERED: METHADONE HCL 40 MG DISPERSABLE TABLET ONE (03:45)
[2017-04-24] MEDS: METHADONE 120 MG, METHADONE 20 MG PO SCH (06:17)
[2017-04-24] MEDS: CITALOPRAM HYDROBROMIDE 20 MG TABLET (FP) PO SCH (09:36)
[2017-04-24] MEDS: HYDROCHLOROTHIAZIDE 25 MG TABLET (FP) PO SCH (09:36)
[2017-04-24] MEDS: PRENATAL VITAMINS W/ FOLIC ACID TABLET (FP) PO SCH (09:36)
[2017-04-24] MEDS: ASPIRIN 81 MG CHEWABLE TABLETS PO SCH (09:37)
[2017-04-24] MEDS: ATORVASTATIN CA 10 MG TABLET (FP) PO SCH (21:30)
[2017-04-24] MEDS: THIAMINE HCL 100 MG TABLET (FP) PO SCH (21:30)
[2017-04-24] MEDS: hydrOXYzine PAMOATE 25 MG CAPSULE (FP) PO PRN (21:30)
[2017-04-24] MEDS: risperiDONE 1 MG TABLET (FP) PO SCH (21:30)
[2017-04-25] MEDS ORDERED: METHADONE HCL 10 MG TABLET ONE (03:18)
[2017-04-25] MEDS ORDERED: METHADONE HCL 40 MG DISPERSABLE TABLET ONE (03:18)
[2017-04-25] MEDS: METHADONE 120 MG, METHADONE 20 MG PO SCH (06:04)
[2017-04-25] MEDS: HYDROCHLOROTHIAZIDE 25 MG TABLET (FP) PO SCH (10:08)
[2017-04-25] MEDS: ASPIRIN 81 MG CHEWABLE TABLETS PO SCH (10:09)
[2017-04-25] MEDS: PRENATAL VITAMINS W/ FOLIC ACID TABLET (FP) PO SCH (10:09)
[2017-04-25] MEDS: CITALOPRAM HYDROBROMIDE 20 MG TABLET (FP) PO SCH (10:09)
--- NOTE | 2017-04-25 10:17 | PN ---
Psychiatric Progress Note Vital Signs: Vital Signs Period Temp Pulse Resp BP Sys/Giles Pulse Ox Last 24 Hr 97.4 F 92 18-18 143/78 Date of Session: 04/25/17 Chief Complaint:: Discharge Note HPI: Patient addressing Alcohol, Cocaine and Sedative Dependence comorbid with Opoid Dependence on Agonist Therapy, Nicotine Dependence and Bipolar Disorder. ROS: Asthma, HTN, Hyperlipidemia were medically managed Current Medications: Active Medications Generic Name Dose Route Start Last Admin Trade Name Freq PRN Reason Stop Dose Admin Acetaminophen 650 mg 04/09/17 20:31 Tylenol - PO Q4H PRN FEVER OR PAIN Al Hydroxide/Mg Hydroxide 30 ml 04/09/17 20:31 Mylanta Oral Suspension - PO Q6H PRN DYSPEPSIA Albuterol Sulfate 2 puff 04/11/17 12:29 04/12/17 21:25 Ventolin Hfa Inhaler - IH 2 puff Q4H PRN Administration SHORT OF BREATH/WHEEZING Aspirin 81 mg 04/10/17 10:00 04/25/17 10:09 Asa - PO 81 mg DAILY CHARLINE Administration Atorvastatin Calcium 10 mg 04/09/17 22:00 04/24/17 21:30 Lipitor - PO 10 mg HS CHARLINE Administration Citalopram Hydrobromide 20 mg 04/10/17 15:30 04/25/17 10:09 Celexa - PO 20 mg DAILY CHARLINE Administration Diphenhydramine HCl 50 mg 04/09/17 20:31 04/18/17 22:02 Benadryl - PO 50 mg HSMR1 PRN Administration FOR ITCHING Eucalyptus/Menthol/Phenol/Sorbitol 1 each 04/09/17 20:31 Cepastat Lozenge - MM Q4H PRN SORE THROAT Guaifenesin 10 ml 04/09/17 20:31 Robitussin Dm - PO Q6H PRN COUGH Hydrochlorothiazide 25 mg 04/10/17 10:00 04/25/17 10:08 Hctz - PO 25 mg DAILY CHARLINE Administration Hydroxyzine Pamoate 25 mg 04/09/17 20:31 04/24/17 21:30 Vistaril - PO 25 mg Q4H PRN Administration ANXIETY Ibuprofen 400 mg 04/09/17 20:31 Motrin - PO Q6H PRN PAIN Loperamide HCl 4 mg 04/09/17 20:31 Imodium - PO Q6H PRN DIARRHEA Magnesium Hydroxide 30 ml 04/09/17 20:31 Milk Of Magnesia - PO DAILY PRN CONSTIPATION Methadone HCl 120 mg/ 140 mg 04/23/17 06:00 04/25/17 06:04 Methadone HCl 20 mg PO 140 mg DAILY@06 CHARLINE Administration Multivit/Folic Acid/Iron 1 tab 04/10/17 10:00 04/25/17 10:09 Vitamins (Sjr) - PO 1 tab DAILY CHARLINE Administration Pseudoephedrine/Triprolidine 1 combo 04/09/17 20:31 Actifed - PO TID PRN NASAL CONGESTION Risperidone 1 mg 04/10/17 22:00 04/24/17 21:30 Risperdal - PO 1 mg HS CHARLINE Administration Thiamine HCl 100 mg 04/09/17 22:00 04/24/17 21:30 Vitamin B1 - PO 100 mg HS CHARLINE Administration Current Side Effect: No Lab tests ordered: Yes Lab tests reviewed: Yes Provider note:: Patient will complete this program on 04/26/17. He has met his treatment goals and will continue to address his issues in outpatient treatment at [facility] at [address] [place] [address].. 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 He responded well to Risperdal 1 mg po HS and Celexa 20 mg po daily. Scripts for 30 days supply of medications will be electronically transmitted to [facility] at [address] [place] [address]. He is stable for discharge on 04/26/17. Total face to face time:: 35 Mental Status Exam - Mental Status Exam Alert and Oriented to: Time, Place, Person Cognitive Function: Fair Patient Appearance: Well Groomed Mood: Hopeful, Euthymic Affect: Appropriate Patient Behavior: Cooperative Speech Pattern: Clear Voice Loudness: Normal Thought Process: Intact, Goal Oriented Thought Disorder: Not Present Hallucinations: Denies Suicidal Ideation: Denies Homicidal Ideation: Denies Insight/Judgement: Fair Sleep: Fair Appetite: Good Muscle strength/Tone: Normal Gait/Station: Normal Psychiatric Treatment Plan - Problem List (1) Alcohol dependence Current Visit: Yes (2) Cocaine dependence Current Visit: Yes (3) Sedative hypnotic or anxiolytic dependence Current Visit: Yes (4) Opioid dependence on agonist therapy Current Visit: Yes (5) Nicotine dependence Current Visit: No Qualifiers: Nicotine product type: cigarettes Substance use status: in withdrawal Qualified Code(s): F17.213 - Nicotine dependence, cigarettes, with withdrawal (6) Bipolar disorder Current Visit: Yes (7) Asthma Current Visit: No Qualifiers: Asthma severity: mild intermittent Asthma complication type: with status asthmaticus Qualified Code(s): J45.22 - Mild intermittent asthma with status asthmaticus (8) Hyperlipidemia Current Visit: No Qualifiers: Hyperlipidemia type: pure hypercholesterolemia Qualified Code(s): E78.00 - Pure hypercholesterolemia, unspecified; E78.0 - Pure hypercholesterolemia (9) Hypertension Current Visit: No Qualifiers: Hypertension type: essential hypertension Qualified Code(s): I10 - Essential (primary) hypertension Initial treatment plan: Patient will be discharged tomorrow cand referred to for outpatient treatment
[2017-04-25] MEDS: risperiDONE 1 MG TABLET (FP) PO SCH (21:20)
[2017-04-25] MEDS: ATORVASTATIN CA 10 MG TABLET (FP) PO SCH (21:20)
[2017-04-25] MEDS: THIAMINE HCL 100 MG TABLET (FP) PO SCH (21:20)
[2017-04-26] MEDS ORDERED: METHADONE HCL 40 MG DISPERSABLE TABLET ONE (04:12)
[2017-04-26] MEDS ORDERED: METHADONE HCL 10 MG TABLET ONE (04:12)
[2017-04-26] MEDS: METHADONE 120 MG, METHADONE 20 MG PO SCH (06:06)
[2017-04-26 06:49] VITALS: BP 113/80; PULSE 90; TEMP 98.3
[2017-04-26] MEDS: CITALOPRAM HYDROBROMIDE 20 MG TABLET (FP) PO SCH (09:51)
[2017-04-26] MEDS: ASPIRIN 81 MG CHEWABLE TABLETS PO SCH (09:51)
[2017-04-26] MEDS: HYDROCHLOROTHIAZIDE 25 MG TABLET (FP) PO SCH (09:51)
[2017-04-26] MEDS: PRENATAL VITAMINS W/ FOLIC ACID TABLET (FP) PO SCH (09:51)
== END 2017-04-26 10:15 | disposition home or self-care (01) | DRG 772 ==
LOC: YASAS 18:04 → Y3W 18:07
PROVIDERS: ADMIT Psychiatry & Neurology Psychiatry; ATTEND Psychiatry & Neurology Psychiatry
PROC: HZ42ZZZ Group Counseling for Substance Abuse Treatment, Cognitive-Behavioral (ICD-10-PCS; principal; 2017-04-09)
DX: F10.20 Alcohol dependence, uncomplicated (principal); F11.20 Opioid dependence, uncomplicated; F13.20 Sedative, hypnotic or anxiolytic dependence, uncomplicated; F14.20 Cocaine dependence, uncomplicated; F17.210 Nicotine dependence, cigarettes, uncomplicated; F31.9 Bipolar disorder, unspecified; I10 Essential (primary) hypertension; J45.22 Mild intermittent asthma with status asthmaticus; E78.5 Hyperlipidemia, unspecified; Z79.82 Long term (current) use of aspirin
CPT/HCPCS: J2794

== ENCOUNTER 2017-05-30 11:58 | Inpatient (IN) | payer OTHER ==
[2017-05-30 14:27] VITALS: BMI 35.1
--- NOTE | 2017-05-30 18:26 | HP ---
CIWA Score - CIWA Score Nausea/Vomitin-Mild Nausea/No Vomiting Muscle Tremors: 3 Anxiety: 4-Mod. Anxious/Guarded Agitation: 4-Moderately Restless Paroxysmal Sweats: No Perspiration Orientation: 1-Uncertain about Date Tacttile Disturbances: 0-None Auditory Disturbances: 0-None Visual Disturbances: 0-None Headache: 0-None Present CIWA-Ar Total Score: 13 Admission ROS BHS - HPI Chief Complaint: WITHDRAWAL SX Allergies/Adverse Reactions: Allergies Allergy/AdvReac Type Severity Reaction Status Date / Time Penicillins Allergy Severe Hives Verified 05/30/17 17:26 History of Present Illness: 56 YEARS OLD MALE WITH LONG HISTORY OF ALCOHOL NICOTINE DEPENDENCE HAS HYPERTENSION, ASTHMA HYPERLIPIDEMIA AND DEPRESSION IS ADMITTED TO DETOX Exam Limitations: No Limitations - Ebola screening Have you traveled outside of the country in the last 21 days: No Have you had contact with anyone from an Ebola affected area: No Have you been sick,other than usual withdrawal symptoms: No Do you have a fever: No - Review of Systems Constitutional: Changes in sleep, Weight Stable EENT: reports: No Symptoms Reported Respiratory: reports: SOB with Exertion Cardiac: reports: No Symptoms Reported GI: reports: Nausea, Poor Fluid Intake, Abdominal cramping : reports: No Symptoms Reported Musculoskeletal: reports: Back Pain, Joint Pain, Muscle Pain Integumentary: reports: No Symptoms Reported Neuro: reports: Tremors Endocrine: reports: No Symptoms Reported Hematology: reports: No Symptoms Reported Psychiatric: reports: Judgement Intact, Anxious, Depressed Other Systems: Reviewed and Negative Patient History - Patient Medical History Hx Anemia: No Hx Asthma: Yes Hx Chronic Obstructive Pulmonary Disease (COPD): No Hx Cancer: No Hx Cardiac Disorders: No Hx Congestive Heart Failure: No Hx Hypertension: Yes Hx Hypercholesterolemia: Yes Hx Pacemaker: No HX Cerebrovascular Accident: No Hx Seizures: No Hx Dementia: No Hx Diabetes: No Hx Gastrointestinal Disorders: No Hx Liver Disease: No Hx Genitourinary Disorders: No Hx Sexually Transmitted Disorders: No Hx Renal Disease (ESRD): No Hx Thyroid Disease: No Hx Human Immunodeficiency Virus (HIV): No Hx Hepatitis C: No Hx Depression: Yes Hx Suicide Attempt: No Hx Bipolar Disorder: No Hx Schizophrenia: No - Patient Surgical History Past Surgical History: Yes Hx Neurologic Surgery: No Hx Cataract Extraction: No Hx Cardiac Surgery: No Hx Lung Surgery: No Hx Breast Surgery: No Hx Breast Biopsy: No Hx Abdominal Surgery: No Hx Appendectomy: No Hx Cholecystectomy: No Hx Genitourinary Surgery: No Hx Orthopedic Surgery: Yes (DISLOCATED LEFT SHOULDER 20 YRS AGO) Anesthesia Reaction: No - PPD History Previous Implant?: Yes Documented Results: Negative w/o proof Implanted On Prior [facility] Admission?: Yes Date: 04/07/17 PPD to be Administered?: Yes - Smoking Cessation Smoking history: Current every day smoker Have you smoked in the past 12 months: Yes Aproximately how many cigarettes per day: 4 Cigars Per Day: 0 Hx Chewing Tobacco Use: No Initiated information on smoking cessation: Yes 'Breaking Loose' booklet given: 05/30/17 - Substance & Tx. History Hx Alcohol Use: Yes Hx Substance Use: Yes Substance Use Type: Alcohol, Heroin, Tranquilizers Hx Substance Use Treatment: Yes - Substances Abused Alcohol Route: Oral Frequency: Daily Amount used: LIQUOR - 2 PINTS, BEER- 2 SIX PACK Age of first use: 19 Date of Last Use: 05/30/17 Alprazolam (Xanax) Route: Oral Frequency: 1-2 times per week Amount used: 2mg Age of first use: 17 Date of Last Use: 05/29/17 Family Disease History - Family Disease History Family Disease History: Diabetes: Mother, Heart Disease: Father, Brother, Sister Admission Physical Exam S - Vital Signs Vital Signs: Vital Signs - 24 hr 05/30/17 14:21 Temperature 97.9 F Pulse Rate 92 H Respiratory 20 Rate Blood Pressure 153/92 - Physical General Appearance: Yes: Appropriately Dressed, Mild Distress, Obese, Tremorous , Irritable, Sweating, Anxious HEENTM: Yes: Hearing grossly Normal, Normal ENT Inspection, Normocephalic, Normal Voice Respiratory: Yes: Chest Non-Tender, No Respiratory Distress, No Accessory Muscle Use, Wheezing, Expiration Neck: Yes: Supple, Trachea in good position Breast: Yes: Breasts Symetrical Cardiology: Yes: Regular Rhythm, S1, S2, Tachycardia Abdominal: Yes: Normal Bowel Sounds, Non Tender, Soft Genitourinary: Yes: Within Normal Limits Back: Yes: Normal Inspection Musculoskeletal: Yes: full range of Motion, Gait Steady, Back pain, Muscle Pain Extremities: Yes: Normal Inspection, Normal Range of Motion, Non-Tender, Tremors Neurological: Yes: Alert, Motor Strength 5/5, Normal Response, Depressed Affect Integumentary: Yes: Warm Lymphatic: Yes: Within Normal Limits - Diagnostic (1) Alcohol dependence with uncomplicated withdrawal Current Visit: Yes Status: Acute (2) Asthma Current Visit: Yes Status: Chronic Qualifiers: Asthma severity: mild Asthma persistence: intermittent Asthma complication type: with status asthmaticus Qualified Code(s): J45.22 - Mild intermittent asthma with status asthmaticus; J45.22 - Mild intermittent asthma with status asthmaticus; J45.22 - Mild intermittent asthma with status asthmaticus (3) Hyperlipidemia Current Visit: Yes Status: Chronic Qualifiers: Hyperlipidemia type: pure hypercholesterolemia Qualified Code(s): E78.00 - Pure hypercholesterolemia, unspecified; E78.00 - Pure hypercholesterolemia, unspecified; E78.00 - Pure hypercholesterolemia, unspecified; E78.0 - Pure hypercholesterolemia (4) Hypertension Current Visit: Yes Status: Chronic Qualifiers: Hypertension type: essential hypertension Qualified Code(s): I10 - Essential (primary) hypertension; I10 - Essential (primary) hypertension; I10 - Essential (primary) hypertension (5) Methadone maintenance therapy patient Current Visit: Yes Status: Chronic Comment: 140 mg verification pending (6) Nicotine dependence Current Visit: Yes Status: Acute Qualifiers: Nicotine product type: cigarettes Substance use status: in withdrawal Qualified Code(s): F17.213 - Nicotine dependence, cigarettes, with withdrawal; F17.213 - Nicotine dependence, cigarettes, with withdrawal Cleared for Admission BHS - Detox or Rehab [facility] Level of Care: Medically Managed Detox Regimen/Protocol: Librium [facility] Breath Alcohol Content Breath Alcohol Content: 0.066 Urine Drug Screen - Results Drug Screen Negative: No Urine Drug Screen Results: OPI-Opiates, BZO-Benzodiazepines, MTD-Methadone
[2017-05-30] MEDS ORDERED: ACETAMINOPHEN 325 MG TABLET (FP) PO PRN (18:29)
[2017-05-30] MEDS ORDERED: MENTHOL/PHENOL 1 EACH UD MM PRN (18:29)
[2017-05-30] MEDS ORDERED: MAGNESIUM CITRATE 300 ML BOTTLE PO PRN (18:29)
[2017-05-30] MEDS ORDERED: chlordiazePOXIDE HCL 25 MG CAPSULE PO PRN (18:29)
[2017-05-30] MEDS ORDERED: MAG HYDROX/AL HYDROX/SIMETH 30 ML UNIT-DOSE CUP PO PRN (18:29)
[2017-05-30] MEDS ORDERED: guaiFENesin/D-METHORPHAN HB 10 ML UNIT-DOSE CUPS PO PRN (18:29)
[2017-05-30] MEDS ORDERED: P-EPHED 60MG/TRIPROLIDI 2.5MG TABLET PO PRN (18:29)
[2017-05-30] MEDS ORDERED: NICOTINE POLACRILEX 2 MG GUM BC PRN (18:29)
[2017-05-30] MEDS ORDERED: MAGNESIUM HYDROX 2400MG/30ML ORAL SUSPENSION 30 ML CUP PO PRN (18:29)
[2017-05-30] MEDS ORDERED: LOPERAMIDE HCL 2 MG CAPSULE PO PRN (18:29)
[2017-05-30] MEDS ORDERED: ALBUTEROL SO4 18 GM HFA INHALER IH PRN (18:32)
[2017-05-30] MEDS: ATORVASTATIN CA 10 MG TABLET (FP) PO SCH (22:12)
[2017-05-30] MEDS: chlordiazePOXIDE HCL 25 MG CAPSULE PO SCH (22:13)
[2017-05-30 22:57] LABS: URINE APPEARANCE SLCLOUDY; URINE BILIRUBIN NEGATIVE (NEGATIVE); URINE BLOOD NEGATIVE (NEGATIVE); URINE COLOR AMBER; URINE GLUCOSE (UA) NEGATIVE (NEGATIVE); URINE KETONE NEGATIVE (NEGATIVE); URINE NITRITE NEGATIVE (NEGATIVE); URINE PROTEIN NEGATIVE (NEGATIVE); URINE UROBILINOGEN NEGATIVE mg/dL (0.2-1.0)
[2017-05-31] MEDS: chlordiazePOXIDE HCL 25 MG CAPSULE PO SCH ×4 (05:34→22:28)
[2017-05-31] MEDS ORDERED: METHADONE HCL 40 MG DISPERSABLE TABLET PO SCH ×2 (10:00→10:29)
[2017-05-31] MEDS: ASPIRIN 81 MG CHEWABLE TABLETS PO SCH (10:06)
[2017-05-31] MEDS: HYDROCHLOROTHIAZIDE 25 MG TABLET (FP) PO SCH (10:06)
[2017-05-31] MEDS: NICOTINE 14 MG/24 HOURS TOPICAL PATCH TD SCH (10:08)
[2017-05-31 10:20] LABS: MCH 31.2 pg (25.7-33.7); MEAN CELL VOLUME 94.6 fl (80-96); MEAN PLT VOLUME 7.5 fl (7.5-11.1); PLATELET COUNT 223 K/MM3 (134-434); RDW 13.2 % (11.9-15.9); WHITE BLOOD COUNT 8.6 K/mm3 (4.0-10.0)
[2017-05-31 10:34] LABS: URINE LEUK ESTERASE Negative (NEGATIVE)
[2017-05-31 10:41] LABS: ALBUMIN 3.6 g/dl (3.4-5.0); ANION GAP 10 (8-16); CALCIUM 9.6 mg/dL (8.5-10.1); CO2 30 mmol/L (21-32); GLUCOSE,RANDOM 99 mg/dL (74-106)
--- NOTE | 2017-05-31 10:43 | EKG ---
Test Reason : Blood Pressure : / mmHG Vent. Rate : 092 BPM Atrial Rate : 092 BPM P-R Int : 190 ms QRS Dur : 078 ms QT Int : 372 ms P-R-T Axes : 054 056 058 degrees QTc Int : 460 ms NORMAL SINUS RHYTHM SEPTAL INFARCT , AGE UNDETERMINED ABNORMAL ECG WHEN COMPARED WITH ECG OF 05-APR-2017 21:57, NONSPECIFIC T WAVE ABNORMALITY NOW EVIDENT IN LATERAL LEADS Confirmed by MARY ELLEN CORTEZ, EDMOND ([id number]) on 05/31/2017 10:42:53 AM Referred By: Bashir Franco Confirmed By:EDMOND HYDE MD
[2017-05-31 10:46] LABS: ALK PHOS 47 U/L (45-117); BILIRUBIN,TOTAL 0.5 mg/dL (0.2-1.0); SGOT/AST 15 U/L (15-37); SGPT/ALT 20 U/L (12-78); TOT PROT 7.4 g/dl (6.4-8.2)
[2017-05-31] MEDS: METHADONE 120 MG, METHADONE 20 MG PO SCH (10:55)
--- NOTE | 2017-05-31 11:50 | CONSULT ---
[facility] Psychiatric Consult - Data Date of interview: 05/31/17 Admission source: [facility] Identifying data: Readmission to [facility] for this 56 y/o AA male seking detox treatment on for opioid,alcohol and xanax dependence.Patient is single without children,domiciled,unemployed and supported on Public Assistance. Substance Abuse History: Confirmed by patient in this interview. Smoking Cessation. Smoking history: Current every day smoker. Have you smoked in the past 12 months: Yes. Aproximately how many cigarettes per day: 4. Cigars Per Day: 0. Hx Chewing Tobacco Use: No. Initiated information on smoking cessation : Yes. 'Breaking Loose' booklet given: 05/30/17. - Substance & Tx. History. Hx Alcohol Use: Yes. Hx Substance Use: Yes. Substance Use Type: Alcohol, Heroin, Tranquilizers. Hx Substance Use Treatment: Yes. - Substances Abused. Alcohol. Route: Oral. Frequency: Daily. Amount used: LIQUOR - 2 PINTS, BEER- 2 SIX PACK. Age of first use: 19. Date of Last Use: 05/30/17. Alprazolam (Xanax). Route: Oral. Frequency: 1-2 times per week. Amount used: 2mg. Age of first use: 17. Date of Last Use: 05/29/17 Medical History: Hypertension,hypercholesterolemia and bronchial asthma. Psychiatric History: Recent onset of psychiatric disturbances (first contact with Psychiatry in 2014) : admission to [facility] due to depression + psychosis.Diagnosed with Bipolar Disorder.Patient reports an overall history of three psychiatric hospitalizations.Known to [facility] as well.Mr Florez gets psychiatric OPD services at the [facility] Day rehabilitation clinic in [facility]Prescribed risperdal 1 mg/hs + celexa 20 mg/ day.No reported history of suicide attempts. Physical/Sexual Abuse/Trauma History: Patient denies history of abuse. Additional Comment: Urine Drug Screen Results: OPI-Opiates, BZO-Benzodiazepines , MTD-Methadone.Noted. Mental Status Exam - Mental Status Exam Alert and Oriented to: Time, Place, Person Cognitive Function: Good Patient Appearance: Well Groomed Mood: Hopeful, Euthymic Affect: Normal Range Patient Behavior: Fatigued, Cooperative Speech Pattern: Clear Voice Loudness: Normal Thought Process: Goal Oriented Thought Disorder: Not Present Hallucinations: Denies Suicidal Ideation: Denies Homicidal Ideation: Denies Insight/Judgement: Poor Sleep: Poorly, Difficulty falling asleep Appetite: Good Muscle strength/Tone: Normal Gait/Station: Normal Psychiatric Findings - Problem List ([place] 1, 2,3) (1) Alcohol dependence with uncomplicated withdrawal Current Visit: Yes Status: Acute (2) Opioid dependence on agonist therapy Current Visit: Yes Status: Acute (3) Sedative hypnotic or anxiolytic dependence Current Visit: Yes Status: Acute (4) Nicotine dependence Current Visit: Yes Status: Acute Qualifiers: Nicotine product type: cigarettes Substance use status: in withdrawal Qualified Code(s): F17.213 - Nicotine dependence, cigarettes, with withdrawal; F17.213 - Nicotine dependence, cigarettes, with withdrawal (5) Drug-induced mood disorder Current Visit: Yes Status: Acute (6) Bipolar disorder Current Visit: Yes Status: Chronic (7) Asthma Current Visit: Yes Status: Chronic Qualifiers: Asthma severity: mild Asthma persistence: intermittent Asthma complication type: with status asthmaticus Qualified Code(s): J45.22 - Mild intermittent asthma with status asthmaticus; J45.22 - Mild intermittent asthma with status asthmaticus; J45.22 - Mild intermittent asthma with status asthmaticus (8) Hyperlipidemia Current Visit: Yes Status: Chronic Qualifiers: Hyperlipidemia type: pure hypercholesterolemia Qualified Code(s): E78.00 - Pure hypercholesterolemia, unspecified; E78.00 - Pure hypercholesterolemia, unspecified; E78.00 - Pure hypercholesterolemia, unspecified; E78.0 - Pure hypercholesterolemia (9) Hypertension Current Visit: Yes Status: Chronic Qualifiers: Hypertension type: essential hypertension Qualified Code(s): I10 - Essential (primary) hypertension; I10 - Essential (primary) hypertension; I10 - Essential (primary) hypertension (10) Insomnia Current Visit: Yes Status: Acute - Initial Treatment Plan Initial Treatment Plan: Psychoeducation.Previous records are reviewed.Detoxification in progress.Medications : risperdal 1 mg po hs + celexa 20 mg po daily.Side effects/benefits are discussed with patient.Made aware of potential for abnormal involuntary movements (which include akathisia, dyskinesias,dystonias),sexual impotence,galactorrhea,gynecomastia and cardiovascular adverse events (risperdal),suicidal ideation,sexual dysfunction ( celexa).Patient indicates good tolerability to these drugs.Consents (verbally) to follow this careplan.Observation.
--- NOTE | 2017-05-31 11:53 | PN ---
S CIWA - CIWA Score Nausea/Vomitin Muscle Tremors: None Anxiety: 3 Agitation: 2 Paroxysmal Sweats: 3 Orientation: 0-Oriented Tacttile Disturbances: 2-Mild Itch/Numbness/Burn Auditory Disturbances: 0-None Visual Disturbances: 2-Mild Sensitivity Headache: 0-None Present CIWA-Ar Total Score: 17 BHS Progress Note (SOAP) Subjective: Sweating, Vomiting, Stomach Cramping, Interrupted Sleep. Objective: PT. A & O X 3. NO ACUTE DISTRESS. 05/31/17 11:51 Vital Signs Temperature 96.9 F L 05/31/17 10:02 Pulse Rate 97 H 05/31/17 10:02 Respiratory Rate 16 05/31/17 10:02 Blood Pressure 113/74 05/31/17 10:02 O2 Sat by Pulse Oximetry (%) Laboratory Tests 05/30/17 05/31/17 05/31/17 19:00 07:00 07:00 WBC 8.6 D RBC 4.39 Hgb 13.7 Hct 41.5 MCV 94.6 MCH 31.2 MCHC 33.0 RDW 13.2 Plt Count 223 MPV 7.5 Sodium 138 Potassium 3.9 Chloride 98 Carbon Dioxide 30 Anion Gap 10 BUN 10 D Creatinine 1.0 Creat Clearance w eGFR > 60 Random Glucose 99 Calcium 9.6 Total Bilirubin 0.5 D AST 15 D ALT 20 Alkaline Phosphatase 47 D Total Protein 7.4 Albumin 3.6 Urine Color Maribel Urine Appearance Slcloudy Urine pH 6.0 Ur Specific [place] >= 1.030 H Urine Protein Negative Urine Glucose (UA) Negative Urine Ketones Negative Urine Blood Negative Urine Nitrite Negative Urine Bilirubin Negative Urine Urobilinogen Negative Ur Leukocyte Esterase Negative LABS NOTED. RPR RESULT PENDING. 05/31/17 11:52 Assessment: 05/31/17 11:51 WITHDRAWAL SYMPTOMS. Plan: CONTINUE DETOX.
[2017-05-31] MEDS: risperiDONE 1 MG TABLET (FP) PO SCH (22:28)
[2017-05-31] MEDS: ATORVASTATIN CA 10 MG TABLET (FP) PO SCH (22:28)
[2017-06-01] MEDS: diphenhydrAMINE HCL 50 MG CAPSULE PO PRN (01:23)
[2017-06-01] MEDS ORDERED: METHADONE HCL 10 MG TABLET ONE (03:43)
[2017-06-01] MEDS ORDERED: METHADONE HCL 40 MG DISPERSABLE TABLET ONE (03:44)
[2017-06-01] MEDS: chlordiazePOXIDE HCL 25 MG CAPSULE PO SCH ×3 (05:52→17:06)
[2017-06-01] MEDS: METHADONE 120 MG, METHADONE 20 MG PO SCH (05:52)
[2017-06-01] MEDS: ASPIRIN 81 MG CHEWABLE TABLETS PO SCH (10:19)
[2017-06-01] MEDS: HYDROCHLOROTHIAZIDE 25 MG TABLET (FP) PO SCH (10:19)
[2017-06-01] MEDS: NICOTINE 14 MG/24 HOURS TOPICAL PATCH TD SCH (10:20)
[2017-06-01] MEDS: CITALOPRAM HYDROBROMIDE 20 MG TABLET (FP) PO SCH (10:21)
--- NOTE | 2017-06-01 12:15 | PN ---
[facility] CIWA - CIWA Score Nausea/Vomitin-Mild Nausea/No Vomiting Muscle Tremors: 4-Moderate,w/Arms Extend Anxiety: 3 Agitation: 1-Slight > Activity Paroxysmal Sweats: No Perspiration Orientation: 0-Oriented Tacttile Disturbances: 0-None Auditory Disturbances: 2-Mild Harshness/Frighten Visual Disturbances: 3-Moderate Sensitivity Headache: 0-None Present CIWA-Ar Total Score: 14 S Progress Note (SOAP) Subjective: Diarrhea, Tremors, Body Aches, Interrupted sleep. Objective: PT. A & O X 3, OBSERVED AMBULATING ON UNIT. NO ACUTE DISTRESS. 06/01/17 12:14 Vital Signs Temperature 96.1 F L 06/01/17 09:45 Pulse Rate 91 H 06/01/17 09:45 Respiratory Rate 20 06/01/17 09:45 Blood Pressure 121/67 06/01/17 09:45 O2 Sat by Pulse Oximetry (%) Laboratory Tests 05/30/17 05/31/17 05/31/17 19:00 07:00 07:00 WBC 8.6 D RBC 4.39 Hgb 13.7 Hct 41.5 MCV 94.6 MCH 31.2 MCHC 33.0 RDW 13.2 Plt Count 223 MPV 7.5 Sodium 138 Potassium 3.9 Chloride 98 Carbon Dioxide 30 Anion Gap 10 BUN 10 D Creatinine 1.0 Creat Clearance w eGFR > 60 Random Glucose 99 Calcium 9.6 Total Bilirubin 0.5 D AST 15 D ALT 20 Alkaline Phosphatase 47 D Total Protein 7.4 Albumin 3.6 Urine Color Maribel Urine Appearance Slcloudy Urine pH 6.0 Ur Specific [place] >= 1.030 H Urine Protein Negative Urine Glucose (UA) Negative Urine Ketones Negative Urine Blood Negative Urine Nitrite Negative Urine Bilirubin Negative Urine Urobilinogen Negative Ur Leukocyte Esterase Negative RPR Titer 05/31/17 07:00 WBC RBC Hgb Hct MCV MCH MCHC RDW Plt Count MPV Sodium Potassium Chloride Carbon Dioxide Anion Gap BUN Creatinine Creat Clearance w eGFR Random Glucose Calcium Total Bilirubin AST ALT Alkaline Phosphatase Total Protein Albumin Urine Color Urine Appearance Urine pH Ur Specific [place] Urine Protein Urine Glucose (UA) Urine Ketones Urine Blood Urine Nitrite Urine Bilirubin Urine Urobilinogen Ur Leukocyte Esterase RPR Titer Nonreactive LABS NOTED. Assessment: 06/01/17 12:14 WITHDRAWAL SYMPTOMS. Plan: CONTINUE DETOX.
[2017-06-01] MEDS ORDERED: cloNIDine HCL 0.1 MG TABLET PO PRN (19:45)
[2017-06-01] MEDS: chlordiazePOXIDE 5 MG CAPSULE PO SCH (22:24)
[2017-06-01] MEDS: risperiDONE 1 MG TABLET (FP) PO SCH (22:25)
[2017-06-01] MEDS: ATORVASTATIN CA 10 MG TABLET (FP) PO SCH (22:25)
[2017-06-02] MEDS: diphenhydrAMINE HCL 50 MG CAPSULE PO PRN ×2 (02:00→22:38)
[2017-06-02] MEDS ORDERED: METHADONE HCL 40 MG DISPERSABLE TABLET ONE (03:03)
[2017-06-02] MEDS ORDERED: METHADONE HCL 10 MG TABLET ONE (03:03)
[2017-06-02] MEDS: chlordiazePOXIDE 5 MG CAPSULE PO SCH ×3 (05:57→17:10)
[2017-06-02] MEDS: METHADONE 120 MG, METHADONE 20 MG PO SCH (05:57)
[2017-06-02] MEDS: NICOTINE 14 MG/24 HOURS TOPICAL PATCH TD SCH (10:16)
[2017-06-02] MEDS: HYDROCHLOROTHIAZIDE 25 MG TABLET (FP) PO SCH (10:16)
[2017-06-02] MEDS: CITALOPRAM HYDROBROMIDE 20 MG TABLET (FP) PO SCH (10:16)
[2017-06-02] MEDS: ASPIRIN 81 MG CHEWABLE TABLETS PO SCH (10:16)
--- NOTE | 2017-06-02 11:05 | PN ---
BHS Progress Note (SOAP) Subjective: ANXIETY,SWEATS, SLOW AND SLIGHTLY GROGGY. Objective: 06/02/17 11:04 Vital Signs Temperature 96.2 F L 06/02/17 10:12 Pulse Rate 93 H 06/02/17 10:12 Respiratory Rate 18 06/02/17 10:12 Blood Pressure 130/85 06/02/17 10:12 O2 Sat by Pulse Oximetry (%) Laboratory Last Values WBC 8.6 K/mm3 (4.0-10.0) D 05/31/17 07:00 RBC 4.39 M/mm3 (4.00-5.60) 05/31/17 07:00 Hgb 13.7 GM/dL (11.7-16.9) 05/31/17 07:00 Hct 41.5 % (35.4-49) 05/31/17 07:00 MCV 94.6 fl (80-96) 05/31/17 07:00 MCH 31.2 pg (25.7-33.7) 05/31/17 07:00 MCHC 33.0 g/dl (32.0-35.9) 05/31/17 07:00 RDW 13.2 % (11.9-15.9) 05/31/17 07:00 Plt Count 223 K/MM3 (134-434) 05/31/17 07:00 MPV 7.5 fl (7.5-11.1) 05/31/17 07:00 Sodium 138 mmol/L (136-145) 05/31/17 07:00 Potassium 3.9 mmol/L (3.5-5.1) 05/31/17 07:00 Chloride 98 mmol/L (98-107) 05/31/17 07:00 Carbon Dioxide 30 mmol/L (21-32) 05/31/17 07:00 Anion Gap 10 (8-16) 05/31/17 07:00 BUN 10 mg/dL (7-18) D 05/31/17 07:00 Creatinine 1.0 mg/dL (0.7-1.3) 05/31/17 07:00 Creat Clearance w eGFR > 60 (>60) 05/31/17 07:00 Random Glucose 99 mg/dL (74-106) 05/31/17 07:00 Calcium 9.6 mg/dL (8.5-10.1) 05/31/17 07:00 Total Bilirubin 0.5 mg/dL (0.2-1.0) D 05/31/17 07:00 AST 15 U/L (15-37) D 05/31/17 07:00 ALT 20 U/L (12-78) 05/31/17 07:00 Alkaline Phosphatase 47 U/L (45-117) D 05/31/17 07:00 Total Protein 7.4 g/dl (6.4-8.2) 05/31/17 07:00 Albumin 3.6 g/dl (3.4-5.0) 05/31/17 07:00 Urine Color Maribel 05/30/17 19:00 Urine Appearance Slcloudy 05/30/17 19:00 Urine pH 6.0 (5.0-8.0) 05/30/17 19:00 Ur Specific [place] >= 1.030 (1.005-1.025) H 05/30/17 19:00 Urine Protein Negative (NEGATIVE) 05/30/17 19:00 Urine Glucose (UA) Negative (NEGATIVE) 05/30/17 19:00 Urine Ketones Negative (NEGATIVE) 05/30/17 19:00 Urine Blood Negative (NEGATIVE) 05/30/17 19:00 Urine Nitrite Negative (NEGATIVE) 05/30/17 19:00 Urine Bilirubin Negative (NEGATIVE) 05/30/17 19:00 Urine Urobilinogen Negative mg/dL (0.2-1.0) 05/30/17 19:00 Ur Leukocyte Esterase Negative (NEGATIVE) 05/30/17 19:00 RPR Titer Nonreactive (NONREACTIVE) 05/31/17 07:00 Assessment: 06/02/17 11:04 WITHDRAWAL SX Plan: CONTINUE DETOX INCREASE PO FLUIDS
[2017-06-02] MEDS: chlordiazePOXIDE HCL 10 MG CAPSULE PO SCH (22:37)
[2017-06-02] MEDS: ATORVASTATIN CA 10 MG TABLET (FP) PO SCH (22:37)
[2017-06-02] MEDS: risperiDONE 1 MG TABLET (FP) PO SCH (22:37)
[2017-06-03] MEDS ORDERED: METHADONE HCL 10 MG TABLET ONE (03:21)
[2017-06-03] MEDS ORDERED: METHADONE HCL 40 MG DISPERSABLE TABLET ONE (03:22)
[2017-06-03] MEDS: METHADONE 120 MG, METHADONE 20 MG PO SCH (05:51)
[2017-06-03] MEDS: chlordiazePOXIDE HCL 10 MG CAPSULE PO SCH (05:51)
[2017-06-03 07:01] VITALS: BP 123/79; PULSE 89; TEMP 97.3
--- NOTE | 2017-06-03 15:14 | DS ---
[facility] Detox Discharge Summary Admission Date: 05/30/17 Discharge Date: 06/03/17 - History Present History: Alcohol Dependence, MMTP Additional Comments: PATIENT ADVISED TO CONSIDER LOCAL 12-STEP / AA OUTPATIENT SUPPORT GROUP FOR AFTERCARE. PATIENT WAS DISCHARGED FROM DETOX UNIT IN STABLE MEDICAL CONDITION. Pertinent Past History: HTN, Hyperlipidemia, Nicotine Dependence, Insomnia, Bipolar Disorder, MMTP, Asthma. - Physical Exam Results Vital Signs: Vital Signs Temperature 97.3 F L 06/03/17 07:01 Pulse Rate 89 06/03/17 07:01 Respiratory Rate 18 06/03/17 07:01 Blood Pressure 123/79 06/03/17 07:01 O2 Sat by Pulse Oximetry (%) Pertinent Admission Physical Exam Findings: WITHDRAWAL SYMPTOMS. Laboratory Tests 05/30/17 05/31/17 05/31/17 19:00 07:00 07:00 WBC 8.6 D RBC 4.39 Hgb 13.7 Hct 41.5 MCV 94.6 MCH 31.2 MCHC 33.0 RDW 13.2 Plt Count 223 MPV 7.5 Sodium 138 Potassium 3.9 Chloride 98 Carbon Dioxide 30 Anion Gap 10 BUN 10 D Creatinine 1.0 Creat Clearance w eGFR > 60 Random Glucose 99 Calcium 9.6 Total Bilirubin 0.5 D AST 15 D ALT 20 Alkaline Phosphatase 47 D Total Protein 7.4 Albumin 3.6 Urine Color Maribel Urine Appearance Slcloudy Urine pH 6.0 Ur Specific [place] >= 1.030 H Urine Protein Negative Urine Glucose (UA) Negative Urine Ketones Negative Urine Blood Negative Urine Nitrite Negative Urine Bilirubin Negative Urine Urobilinogen Negative Ur Leukocyte Esterase Negative RPR Titer 05/31/17 07:00 WBC RBC Hgb Hct MCV MCH MCHC RDW Plt Count MPV Sodium Potassium Chloride Carbon Dioxide Anion Gap BUN Creatinine Creat Clearance w eGFR Random Glucose Calcium Total Bilirubin AST ALT Alkaline Phosphatase Total Protein Albumin Urine Color Urine Appearance Urine pH Ur Specific [place] Urine Protein Urine Glucose (UA) Urine Ketones Urine Blood Urine Nitrite Urine Bilirubin Urine Urobilinogen Ur Leukocyte Esterase RPR Titer Nonreactive LABS NOTED. - Treatment Hospital Course: Detox Protocol Followed, Detoxed Safely, Responded well, Discharged Condition Good Patient has Accepted a Rehab Referral to: NO. PT ADVISED TO CONSIDER LOCAL 12- STEP/NA SUPPORT GROUPS FOR AFTERCARE. - Medication Discharge Medications: Ambulatory Orders Risperidone [Risperdal] 1 mg PO HS 04/05/17 Simvastatin [Zocor -] 10 mg PO HS 04/05/17 Risperidone [Risperdal -] 1 mg PO HS #30 tablet 04/06/17 Albuterol Sulfate Inhaler - [Ventolin HFA Inhaler -] 2 inh PO Q4H #1 inhaler 01/04 Aspirin [ASA -] 81 mg PO DAILY 30 Days 04/25/17 Citalopram Hydrobromide [Celexa -] 20 mg PO DAILY #30 tablet 04/25/17 Hydrochlorothiazide [Hctz -] 25 mg PO DAILY #30 tablet 04/25/17 Risperidone [Risperdal] 1 mg PO HS #30 tablet 04/25/17 Citalopram Hydrobromide [Celexa -] 20 mg PO DAILY #30 tablet 05/31/17 Risperidone [Risperdal] 1 mg PO HS #30 tablet 05/31/17 - Diagnosis (1) Alcohol dependence with uncomplicated withdrawal Status: Acute (2) Drug-induced mood disorder Status: Acute (3) Insomnia Status: Acute Qualifiers: Insomnia type: unspecified Qualified Code(s): G47.00 - Insomnia, unspecified; G47.00 - Insomnia, unspecified (4) Nicotine dependence Status: Chronic Qualifiers: Nicotine product type: cigarettes Substance use status: in withdrawal Qualified Code(s): F17.213 - Nicotine dependence, cigarettes, with withdrawal; F17.213 - Nicotine dependence, cigarettes, with withdrawal (5) Opioid dependence on agonist therapy Status: Chronic (6) Sedative hypnotic or anxiolytic dependence Status: Acute (7) Asthma Status: Chronic Qualifiers: Asthma severity: mild Asthma persistence: intermittent Asthma complication type: uncomplicated Qualified Code(s): J45.20 - Mild intermittent asthma, uncomplicated; J45.20 - Mild intermittent asthma, uncomplicated; J45.20 - Mild intermittent asthma, uncomplicated (8) Bipolar disorder Status: Chronic Qualifiers: Active/Remission status: remission status unspecified Qualified Code (s): F31.9 - Bipolar disorder, unspecified; F31.9 - Bipolar disorder, unspecified; F31.9 - Bipolar disorder, unspecified; F31.9 - Bipolar disorder, unspecified (9) Cocaine dependence Status: Chronic Qualifiers: Substance use status: uncomplicated Qualified Code(s): F14.20 - Cocaine dependence, uncomplicated; F14.20 - Cocaine dependence, uncomplicated; F14.20 - Cocaine dependence, uncomplicated (10) Hyperlipidemia Status: Chronic Qualifiers: Hyperlipidemia type: pure hypercholesterolemia Qualified Code(s): E78.00 - Pure hypercholesterolemia, unspecified; E78.00 - Pure hypercholesterolemia, unspecified; E78.00 - Pure hypercholesterolemia, unspecified; E78.0 - Pure hypercholesterolemia (11) Hypertension Status: Chronic Qualifiers: Hypertension type: essential hypertension Qualified Code(s): I10 - Essential (primary) hypertension; I10 - Essential (primary) hypertension; I10 - Essential (primary) hypertension (12) Methadone maintenance therapy patient Status: Chronic - AMA Did Patient Leave Against Medical Advice: No
== END 2017-06-03 07:21 | disposition home or self-care (01) | DRG 773 ==
LOC: YASAS 11:58 → Y3N 18:53
PROVIDERS: ADMIT Internal Medicine; ATTEND Internal Medicine
PROC: HZ2ZZZZ Detoxification Services for Substance Abuse Treatment (ICD-10-PCS; principal; 2017-05-30)
DX: F10.230 Alcohol dependence with withdrawal, uncomplicated (principal); F13.230 Sedative, hypnotic or anxiolytic dependence with withdrawal, uncomplicated; F11.20 Opioid dependence, uncomplicated; F14.20 Cocaine dependence, uncomplicated; F17.213 Nicotine dependence, cigarettes, with withdrawal; F19.24 Other psychoactive substance dependence with psychoactive substance-induced mood disorder; F31.9 Bipolar disorder, unspecified; E78.5 Hyperlipidemia, unspecified; E66.9 Obesity, unspecified; Z68.35 Body mass index [BMI] 35.0-35.9, adult; G47.00 Insomnia, unspecified; J45.20 Mild intermittent asthma, uncomplicated; R00.0 Tachycardia, unspecified; I10 Essential (primary) hypertension; Z88.0 Allergy status to penicillin
CPT/HCPCS: 36415; 80053; 81003; 85027; 86593; 93005; 93010; J2794

== ENCOUNTER 2020-10-30 12:07 | Inpatient (IN) | payer OTHER ==
[2020-10-30 13:34] VITALS: BMI 31.4
[2020-10-30] MEDS ORDERED: chlordiazePOXIDE HCL 25 MG CAPSULE PO PRN (13:44)
[2020-10-30] MEDS ORDERED: NICOTINE POLACRILEX 2 MG GUM BUC PRN (13:44)
[2020-10-30] MEDS ORDERED: IBUPROFEN 400 MG TABLET (FP) PO PRN (13:44)
[2020-10-30] MEDS ORDERED: BISMUTH SUBSALICYLATE 524 MG/30 ML UD PO PRN (13:44)
[2020-10-30] MEDS ORDERED: ONDANSETRON *ODT* 4 MG TABLET SL PRN (13:44)
[2020-10-30] MEDS ORDERED: MAGNESIUM CITRATE 300 ML BOTTLE PO PRN (13:44)
[2020-10-30] MEDS ORDERED: ACETAMINOPHEN 325 MG TABLET (FP) PO PRN ×2 (13:44)
[2020-10-30] MEDS ORDERED: MAG HYDROX/AL HYDROX/SIMETH 30 ML UNIT-DOSE CUP PO PRN (13:44)
[2020-10-30] MEDS ORDERED: MAGNESIUM HYDROX 2400MG/30ML ORAL SUSPENSION 30 ML CUP PO PRN (13:44)
[2020-10-30] MEDS ORDERED: MENTHOL/PHENOL 1 EACH UD MM PRN (13:44)
[2020-10-30] MEDS: hydrOXYzine PAMOATE 25 MG CAPSULE (FP) PO SCH ×3 (16:01→22:45)
[2020-10-30] MEDS: METHOCARBAMOL 500 MG TABLET PO PRN (16:01)
[2020-10-30] MEDS: PRENATAL VITAMINS W/ FOLIC ACID TABLET (FP) PO SCH (16:01)
[2020-10-30] MEDS: NICOTINE 7 MG/24 HOURS TOPICAL PATCH TD SCH (16:02)
[2020-10-30 17:49] LABS: POTASSIUM 4.4 mmol/L (3.5-5.1)
[2020-10-30 17:52] LABS: ALBUMIN 3.7 g/dl (3.4-5.0); CALCIUM 9.6 mg/dL (8.5-10.1)
[2020-10-30 17:55] LABS: CREATININE 1.1 mg/dL (0.55-1.3)
[2020-10-30 17:56] LABS: HEMATOCRIT 39.3 % (35.4-49); HEMOGLOBIN 12.9 GM/dL (11.7-16.9); MCH 32.5 pg (25.7-33.7); MCHC 32.7 g/dl (32.0-35.9); MEAN CELL VOLUME 99.4 fl (80-96); MEAN PLT VOLUME 8.2 fl (7.5-11.1); PLATELET COUNT 212 K/MM3 (134-434); RBC 3.96 M/mm3 (4.00-5.60); RDW 14.3 % (11.9-15.9); WHITE BLOOD COUNT 6.9 K/mm3 (4.0-10.0)
[2020-10-30 17:57] LABS: BILIRUBIN,TOTAL 0.2 mg/dL (0.2-1); TOT PROT 7.6 g/dl (6.4-8.2)
[2020-10-30] MEDS: chlordiazePOXIDE HCL 25 MG CAPSULE PO SCH ×2 (18:02→22:45)
[2020-10-30] MEDS: THIAMINE HCL 100 MG TABLET (FP) PO SCH (22:45)
[2020-10-30] MEDS: MELATONIN 5 MG TABLETS PO SCH (22:46)
[2020-10-31] MEDS: hydrOXYzine PAMOATE 25 MG CAPSULE (FP) PO SCH ×6 (06:31→22:36)
[2020-10-31] MEDS: chlordiazePOXIDE HCL 25 MG CAPSULE PO SCH ×4 (06:31→22:37)
[2020-10-31] MEDS: NICOTINE 7 MG/24 HOURS TOPICAL PATCH TD SCH (11:36)
[2020-10-31] MEDS: PRENATAL VITAMINS W/ FOLIC ACID TABLET (FP) PO SCH (11:36)
[2020-10-31] MEDS ORDERED: METHADONE HCL 40 MG DISPERSABLE TABLET PO SCH (12:30)
[2020-10-31] MEDS ORDERED: METHADONE 160 MG, METHADONE 20 MG PO SCH ×2 (13:00→14:30)
[2020-10-31] MEDS ORDERED: METHADONE HCL 40 MG DISPERSABLE TABLET ONE (15:48)
[2020-10-31] MEDS ORDERED: METHADONE HCL 10 MG TABLET ONE (15:48)
[2020-10-31] MEDS: METHADONE 160 MG, METHADONE 20 MG PO SCH (15:49)
[2020-10-31] MEDS: METHOCARBAMOL 500 MG TABLET PO PRN (17:11)
[2020-10-31] MEDS ORDERED: MASKS NR ONE (18:56)
[2020-10-31] MEDS: MELATONIN 5 MG TABLETS PO SCH (22:37)
[2020-10-31] MEDS: THIAMINE HCL 100 MG TABLET (FP) PO SCH (22:37)
[2020-11-01] MEDS ORDERED: METHADONE HCL 10 MG TABLET ONE (05:01)
[2020-11-01] MEDS ORDERED: METHADONE HCL 40 MG DISPERSABLE TABLET ONE (05:02)
[2020-11-01] MEDS: chlordiazePOXIDE HCL 25 MG CAPSULE PO SCH ×4 (06:03→22:46)
[2020-11-01] MEDS: METHADONE 160 MG, METHADONE 20 MG PO SCH (06:03)
[2020-11-01] MEDS: hydrOXYzine PAMOATE 25 MG CAPSULE (FP) PO SCH ×5 (06:09→22:46)
[2020-11-01] MEDS: PRENATAL VITAMINS W/ FOLIC ACID TABLET (FP) PO SCH (10:23)
[2020-11-01] MEDS: NICOTINE 7 MG/24 HOURS TOPICAL PATCH TD SCH (10:23)
[2020-11-01] MEDS ORDERED: PNEUMOCOCCAL 23 VACCINE 0.5 ML VIAL IM ONE (12:00)
[2020-11-01] MEDS ORDERED: PNEUMOC 13-VAL CONJ-DIP CRM/PF 0.5 ML DISP.SYRIN IM ONE (12:00)
[2020-11-01] MEDS: THIAMINE HCL 100 MG TABLET (FP) PO SCH (22:46)
[2020-11-01] MEDS: MELATONIN 5 MG TABLETS PO SCH (22:46)
[2020-11-02] MEDS ORDERED: chlordiazePOXIDE HCL 10 MG CAPSULE PO PRN
[2020-11-02] MEDS ORDERED: METHADONE HCL 10 MG TABLET ONE (04:45)
[2020-11-02] MEDS ORDERED: METHADONE HCL 40 MG DISPERSABLE TABLET ONE (04:46)
[2020-11-02] MEDS: METHADONE 160 MG, METHADONE 20 MG PO SCH (05:58)
[2020-11-02] MEDS: hydrOXYzine PAMOATE 25 MG CAPSULE (FP) PO SCH ×5 (06:00→22:18)
[2020-11-02] MEDS: chlordiazePOXIDE HCL 10 MG CAPSULE PO SCH ×4 (06:02→22:18)
[2020-11-02] MEDS: PRENATAL VITAMINS W/ FOLIC ACID TABLET (FP) PO SCH (10:10)
[2020-11-02] MEDS: NICOTINE 7 MG/24 HOURS TOPICAL PATCH TD SCH (10:11)
[2020-11-02] MEDS ORDERED: COLLOIDAL OATMEAL 1 BAR EACH TP PRN (18:01)
[2020-11-02] MEDS: THIAMINE HCL 100 MG TABLET (FP) PO SCH (22:18)
[2020-11-02] MEDS: MELATONIN 5 MG TABLETS PO SCH (22:18)
[2020-11-03] MEDS ORDERED: METHADONE HCL 10 MG TABLET ONE (03:59)
[2020-11-03] MEDS ORDERED: METHADONE HCL 40 MG DISPERSABLE TABLET ONE (04:01)
[2020-11-03] MEDS: hydrOXYzine PAMOATE 25 MG CAPSULE (FP) PO SCH ×5 (05:16→22:42)
[2020-11-03] MEDS: METHADONE 160 MG, METHADONE 20 MG PO SCH (05:16)
[2020-11-03] MEDS: chlordiazePOXIDE HCL 10 MG CAPSULE PO SCH ×2 (05:16→17:29)
[2020-11-03] MEDS: PRENATAL VITAMINS W/ FOLIC ACID TABLET (FP) PO SCH (10:34)
[2020-11-03] MEDS: NICOTINE 7 MG/24 HOURS TOPICAL PATCH TD SCH (10:35)
[2020-11-03] MEDS: LACTULOSE 20 GM/30 ML UDC (FOR ORAL USE ONLY) PO SCH ×4 (10:49→22:42)
[2020-11-03] MEDS ORDERED: ALBUTEROL SO4 HFA INHALER IH PRN (14:19)
[2020-11-03] MEDS: HYDROCHLOROTHIAZIDE 12.5 MG CAPSULE (FP) PO SCH (15:28)
[2020-11-03] MEDS: ASPIRIN 81 MG CHEWABLE TABLETS PO SCH (15:28)
[2020-11-03] MEDS: METHOCARBAMOL 500 MG TABLET PO PRN (17:30)
[2020-11-03] MEDS ORDERED: ATORVASTATIN CA 10 MG TABLET (FP) PO SCH (22:00)
[2020-11-03] MEDS: THIAMINE HCL 100 MG TABLET (FP) PO SCH (22:42)
[2020-11-03] MEDS: MELATONIN 5 MG TABLETS PO SCH (22:42)
[2020-11-04] MEDS ORDERED: METHADONE HCL 10 MG TABLET ONE (04:52)
[2020-11-04] MEDS ORDERED: METHADONE HCL 40 MG DISPERSABLE TABLET ONE (04:52)
[2020-11-04] MEDS ORDERED: chlordiazePOXIDE HCL 10 MG CAPSULE PO ONE (05:00)
[2020-11-04] MEDS: METHADONE 160 MG, METHADONE 20 MG PO SCH (05:22)
[2020-11-04] MEDS: hydrOXYzine PAMOATE 25 MG CAPSULE (FP) PO SCH ×2 (05:22→10:52)
[2020-11-04 09:23] VITALS: BP 156/88; PULSE 82; TEMP 97.1
[2020-11-04] MEDS: PRENATAL VITAMINS W/ FOLIC ACID TABLET (FP) PO SCH (10:52)
[2020-11-04] MEDS: NICOTINE 7 MG/24 HOURS TOPICAL PATCH TD SCH (10:52)
[2020-11-04] MEDS: ASPIRIN 81 MG CHEWABLE TABLETS PO SCH (10:52)
[2020-11-04] MEDS: LACTULOSE 20 GM/30 ML UDC (FOR ORAL USE ONLY) PO SCH (10:52)
[2020-11-04] MEDS: HYDROCHLOROTHIAZIDE 12.5 MG CAPSULE (FP) PO SCH (10:52)
== END 2020-11-04 10:25 | disposition home or self-care (01) | DRG 773 ==
LOC: YASAS 12:07 → Y3N 14:47
PROVIDERS: ADMIT Allergy & Immunology; ATTEND Allergy & Immunology
PROC: HZ2ZZZZ Detoxification Services for Substance Abuse Treatment (ICD-10-PCS; principal; 2020-10-30)
DX: F10.230 Alcohol dependence with withdrawal, uncomplicated (principal); F11.20 Opioid dependence, uncomplicated; F13.20 Sedative, hypnotic or anxiolytic dependence, uncomplicated; F14.20 Cocaine dependence, uncomplicated; F17.210 Nicotine dependence, cigarettes, uncomplicated; F19.24 Other psychoactive substance dependence with psychoactive substance-induced mood disorder; F41.1 Generalized anxiety disorder; F32.9 Major depressive disorder, single episode, unspecified; F34.1 Dysthymic disorder; G47.00 Insomnia, unspecified; E78.5 Hyperlipidemia, unspecified; E11.9 Type 2 diabetes mellitus without complications; I10 Essential (primary) hypertension; J45.20 Mild intermittent asthma, uncomplicated; Z88.0 Allergy status to penicillin
CPT/HCPCS: 36415; 80053; 82140; 82962; 85027; 86780; 90732; 93005; 93010; C9803; G0009; U0003

== ENCOUNTER 2021-08-26 15:16 | Inpatient (IN) | payer OTHER ==
[2021-08-26] MEDS ORDERED: IBUPROFEN 400 MG TABLET (FP) PO PRN (17:25)
[2021-08-26] MEDS ORDERED: DICYCLOMINE HCL 10 MG CAPSULE PO PRN (17:25)
[2021-08-26] MEDS ORDERED: MAG HYDROX/AL HYDROX/SIMETH 30 ML UNIT-DOSE CUP PO PRN (17:25)
[2021-08-26] MEDS ORDERED: MENTHOL/PHENOL 1 EACH UD MM PRN (17:25)
[2021-08-26] MEDS ORDERED: MAGNESIUM CITRATE 300 ML BOTTLE PO PRN (17:25)
[2021-08-26] MEDS ORDERED: ACETAMINOPHEN 325 MG TABLET (FP) PO PRN ×2 (17:25)
[2021-08-26] MEDS ORDERED: BISMUTH SUBSALICYLATE 524 MG/30 ML PO PRN (17:25)
[2021-08-26] MEDS ORDERED: MAGNESIUM HYDROX 2400MG/30ML ORAL SUSPENSION 30 ML CUP PO PRN (17:25)
[2021-08-26] MEDS ORDERED: METHOCARBAMOL 500 MG TABLET PO PRN (17:25)
[2021-08-26] MEDS ORDERED: ONDANSETRON *ODT* 4 MG TABLET SL PRN (17:25)
[2021-08-26] MEDS ORDERED: ALBUTEROL SO4 HFA INHALER IH PRN (17:30)
[2021-08-26 22:16] VITALS: BMI 38.7
[2021-08-26] MEDS: THIAMINE HCL 100 MG TABLET (FP) PO SCH (23:33)
[2021-08-26] MEDS: MELATONIN 5 MG TABLETS PO SCH (23:33)
[2021-08-26] MEDS: hydrOXYzine PAMOATE 25 MG CAPSULE (FP) PO PRN (23:33)
[2021-08-27] MEDS: HYDROCHLOROTHIAZIDE 12.5 MG CAPSULE (FP) PO SCH (10:45)
[2021-08-27] MEDS: PRENATAL VITAMINS W/ FOLIC ACID TABLET (FP) PO SCH (10:45)
[2021-08-27 11:16] LABS: HEMOGLOBIN 12.9 GM/dL (11.7-16.9); MCH 30.6 pg (25.7-33.7); MCHC 32.2 g/dl (32.0-35.9); MEAN CELL VOLUME 95.1 fl (80-96); MEAN PLT VOLUME 7.7 fl (7.5-11.1); PLATELET COUNT 239 10^3/uL (134-434); RBC 4.21 M/mm3 (4.00-5.60); RDW 13.6 % (11.9-15.9); WHITE BLOOD COUNT 6.4 K/mm3 (4.0-10.0)
[2021-08-27 11:38] LABS: CALCIUM 9.5 mg/dL (8.5-10.1)
[2021-08-27 11:39] LABS: ALBUMIN 3.4 g/dl (3.4-5.0); BLOOD UREA NITROGEN 13.3 mg/dL (7-18)
[2021-08-27 11:44] LABS: BILIRUBIN,TOTAL 0.3 mg/dL (0.2-1); TOT PROT 6.8 g/dl (6.4-8.2)
[2021-08-27] MEDS ORDERED: methaDONE HCL 10 MG TABLET PO SCH (11:45)
[2021-08-27] MEDS ORDERED: methaDONE HCL 10 MG TABLET PO ONE (13:55)
[2021-08-27] MEDS ORDERED: methaDONE HCL 10 MG TABLET ONE (14:25)
[2021-08-27] MEDS ORDERED: methaDONE HCL 40 MG DISPERSABLE TABLET ONE (14:26)
[2021-08-27] MEDS: ESCITALOPRAM OXALATE 10 MG TABLET PO SCH (14:43)
[2021-08-27] MEDS: risperiDONE 1 MG TABLET PO SCH (21:51)
[2021-08-27] MEDS: THIAMINE HCL 100 MG TABLET (FP) PO SCH (21:51)
[2021-08-27] MEDS: MELATONIN 5 MG TABLETS PO SCH (21:51)
[2021-08-28] MEDS ORDERED: methaDONE HCL 10 MG TABLET ONE (04:03)
[2021-08-28] MEDS ORDERED: methaDONE HCL 40 MG DISPERSABLE TABLET ONE (04:04)
[2021-08-28] MEDS ORDERED: methaDONE HCL 10 MG TABLET PO SCH (06:00)
[2021-08-28] MEDS: PRENATAL VITAMINS W/ FOLIC ACID TABLET (FP) PO SCH (10:33)
[2021-08-28] MEDS: HYDROCHLOROTHIAZIDE 12.5 MG CAPSULE (FP) PO SCH (10:33)
[2021-08-28] MEDS: ESCITALOPRAM OXALATE 10 MG TABLET PO SCH (10:34)
[2021-08-28] MEDS: risperiDONE 1 MG TABLET PO SCH (22:10)
[2021-08-28] MEDS: THIAMINE HCL 100 MG TABLET (FP) PO SCH (22:10)
[2021-08-28] MEDS: MELATONIN 5 MG TABLETS PO SCH (22:10)
[2021-08-28] MEDS: hydrOXYzine PAMOATE 25 MG CAPSULE (FP) PO PRN (22:11)
[2021-08-29] MEDS ORDERED: methaDONE HCL 10 MG TABLET ONE (04:34)
[2021-08-29] MEDS ORDERED: methaDONE HCL 40 MG DISPERSABLE TABLET ONE (04:35)
[2021-08-29] MEDS: ESCITALOPRAM OXALATE 10 MG TABLET PO SCH (10:50)
[2021-08-29] MEDS: hydrOXYzine PAMOATE 25 MG CAPSULE (FP) PO PRN (10:50)
[2021-08-29] MEDS: PRENATAL VITAMINS W/ FOLIC ACID TABLET (FP) PO SCH (10:50)
[2021-08-29] MEDS: HYDROCHLOROTHIAZIDE 12.5 MG CAPSULE (FP) PO SCH (10:50)
[2021-08-29] MEDS: risperiDONE 1 MG TABLET PO SCH (22:35)
[2021-08-29] MEDS: THIAMINE HCL 100 MG TABLET (FP) PO SCH (22:35)
[2021-08-29] MEDS: MELATONIN 5 MG TABLETS PO SCH (22:35)
[2021-08-30] MEDS ORDERED: methaDONE HCL 10 MG TABLET ONE (04:12)
[2021-08-30] MEDS ORDERED: methaDONE HCL 40 MG DISPERSABLE TABLET ONE (04:14)
[2021-08-30 09:14] VITALS: BP 159/84; PULSE 88; TEMP 96.2
== END 2021-08-30 10:36 | disposition other institution (70) | DRG 773 ==
LOC: YASAS 15:16 → Y6N 22:01
PROVIDERS: ADMIT Allergy & Immunology; ATTEND Allergy & Immunology
PROC: HZ2ZZZZ Detoxification Services for Substance Abuse Treatment (ICD-10-PCS; principal; 2021-08-26)
DX: F10.230 Alcohol dependence with withdrawal, uncomplicated (principal); F11.20 Opioid dependence, uncomplicated; F14.20 Cocaine dependence, uncomplicated; F17.210 Nicotine dependence, cigarettes, uncomplicated; F25.9 Schizoaffective disorder, unspecified; F19.282 Other psychoactive substance dependence with psychoactive substance-induced sleep disorder; F19.24 Other psychoactive substance dependence with psychoactive substance-induced mood disorder; E78.00 Pure hypercholesterolemia, unspecified; I10 Essential (primary) hypertension; E11.9 Type 2 diabetes mellitus without complications; Z79.84 Long term (current) use of oral hypoglycemic drugs; J45.20 Mild intermittent asthma, uncomplicated; N40.0 Benign prostatic hyperplasia without lower urinary tract symptoms; Z20.822 Contact with and (suspected) exposure to COVID-19; Z56.0 Unemployment, unspecified; Z59.00 Homelessness unspecified; Z88.0 Allergy status to penicillin
CPT/HCPCS: 36415; 80053; 82962; 85027; 86780; C9803-CS; J2794; U0003; U0005